=== PATIENT | female | born 1960 | race Caucasian/White ===

== ENCOUNTER 2016-03-24 08:27 | Inpatient (IN) | payer MEDICAID, OTHER ==
[2016-03-24] MEDS ORDERED: methylPREDNISolone SOD SUCCI 125 MG/2 ML VIAL IV STA (09:05)
[2016-03-24] MEDS ORDERED: SODIUM CHLORIDE 0.9% 500 ML IV STA (09:05)
[2016-03-24] MEDS ORDERED: IPRATROPIUM-ALBUTEROL 3 ML NEB INHALATION STA ×2 (09:05→10:42)
--- NOTE | 2016-03-24 09:08 | ED ---
General Adult HPI - General Chief complaint: Shortness of Breath Stated complaint: SHAORN, COUGH, RAPID HEARTRATE Time Seen by Provider: 03/24/16 08:45 Source: patient, RN notes reviewed Mode of arrival: ambulatory Limitations: no limitations - History of Present Illness Initial comments: This is a 55-year-old female with past medical history significant for smoking. Patient comes in today stating over the last 5 days she has had difficulty breathing and is getting progressively worse per patient states she's cut down her smoking quite a bit of last 5 days. Patient states she is also coughing quite a bit and no sputum. Patient states now it hurts in her chest cough. Patient states she's been coughing so much she thinks she is injured her chest wall. Patient states when she is not taking deep breaths or coughing it does not hurt. Patient denies any palpitations. Patient denies any abdominal pain. Patient denies nausea vomiting diarrhea. Patient denies any episodes of diaphoresis. Patient denies any headache patient denies numbness weakness. Patient denies any lightheadedness dizziness or near-syncopal episode. - Related Data Home Medications Medication Instructions Recorded Confirmed Tylenol Cold And Flu Liquid 30 ml PO Q4H PRN MDD 150ML 03/24/16 03/24/16 Allergies Allergy/AdvReac Type Severity Reaction Status Date / Time No Known Allergies Allergy Verified 03/24/16 08:46 Review of Systems ROS Statement: Those systems with pertinent positive or pertinent negative responses have been documented in the HPI. ROS Other: All systems not noted in ROS Statement are negative. Past Medical History Past Medical History: No Reported History History of Any Multi-Drug Resistant Organisms: None Reported Past Surgical History: Back Surgery, Tubal Ligation Additional Past Surgical History / Comment(s): BACK SURGERY X2 Past Anesthesia/Blood Transfusion Reactions: No Reported Reaction, Motion Sickness Past Psychological History: No Psychological Hx Reported Smoking Status: Heavy tobacco smoker Past Alcohol Use History: Occasional Past Drug Use History: None Reported - Past Family History Father Family Medical History: Cancer Additional Family Medical History / Comment(s): BOWEL CANCER Mother Family Medical History: Cancer Additional Family Medical History / Comment(s): PANCREATIC CANCER General Exam - General Exam Comments Initial Comments: GENERAL: Patient is well-developed and well-nourished. Patient is nontoxic and well- hydrated and is in mild distress. ENT: Neck is soft and supple. No significant lymphadenopathy is noted. Oropharynx is clear. Moist mucous membranes. Neck has full range of motion without eliciting any pain. EYES: The sclera were anicteric and conjunctiva were pink and moist. Extraocular movements were intact and pupils were equal round and reactive to light. Eyelids were unremarkable. PULMONARY: Patient has diminished breath sounds bilaterally and some crackles in left side CARDIOVASCULAR: There is a regular rate and rhythm without any murmurs gallops or rubs. ABDOMEN: Soft and nontender with normal bowel sounds. No palpable organomegaly was noted. There is no palpable pulsatile mass. SKIN: Skin is clear with no lesions or rashes and otherwise unremarkable. NEUROLOGIC: Patient is alert and oriented x3. Cranial nerves II through XII are grossly intact. Motor and sensory are also intact. Normal speech, volume and content. Symmetrical smile. MUSCULOSKELETAL: Normal extremities with adequate strength and full range of motion. No lower extremity swelling or edema. No calf tenderness. LYMPHATICS: No significant lymphadenopathy is noted PSYCHIATRIC: Normal psychiatric evaluation. Limitations: no limitations Course Vital Signs 03/24/16 03/24/16 03/24/16 08:43 09:10 09:18 Temperature 98.4 F 98.3 F Pulse Rate 113 H 106 H 88 Respiratory 18 18 18 Rate Blood Pressure 144/66 135/67 O2 Sat by Pulse 89 L 88 L 95 Oximetry 03/24/16 03/24/16 03/24/16 09:37 09:47 09:50 Temperature Pulse Rate 79 108 H 72 Respiratory 17 Rate Blood Pressure 124/69 O2 Sat by Pulse 97 Oximetry 03/24/16 03/24/16 03/24/16 10:33 11:16 11:26 Temperature 98.1 F Pulse Rate 104 H 103 H 100 Respiratory 18 Rate Blood Pressure O2 Sat by Pulse 91 L Oximetry Medical Decision Making - Medical Decision Making EKG shows a sinus rhythm with a marked sinus arrhythmia at 85 bpm PA interval is 128 QRS is 92 QT interval 360 QTC is 428. Patient's EKG shows no ST segment elevation or depression or T-wave abdomen is noted Patient received multiple breathing treatments in the emergency department as well as Solu-Medrol and after those treatments I listened to the patient she continued to wheeze and dropped down to 91% pulse ox on 2 L. Was at this point time I felt the patient needed to be admitted because she continued to have shortness of breath wheezing and her pulse ox was low and she has no oxygen or treatments at home. I spoke with Dr. Judge he agreed to admit the patient admitted the patient and wrote admitting orders - Lab Data Result diagrams: 03/24/16 09:10 03/24/16 09:10 Lab Results 03/24/16 03/24/16 03/24/16 Range/Units 09:10 09:10 09:10 WBC 12.6 H (3.8-10.6) k/uL RBC 4.86 (3.80-5.40) m/uL Hgb 15.3 (11.4-16.0) gm/dL Hct 46.6 H (34.0-46.0) % MCV 95.9 (80.0-100.0) fL MCH 31.4 (25.0-35.0) pg MCHC 32.7 (31.0-37.0) g/dL RDW 11.8 (11.5-15.5) % Plt Count 227 (150-450) k/uL Neutrophils % 85 % Lymphocytes % 9 % Monocytes % 5 % Eosinophils % 0 % Basophils % 0 % Neutrophils # 10.7 H (1.3-7.7) k/uL Lymphocytes # 1.2 (1.0-4.8) k/uL Monocytes # 0.6 (0-1.0) k/uL Eosinophils # 0.0 (0-0.7) k/uL Basophils # 0.0 (0-0.2) k/uL PT (9.0-12.0) sec INR (<1.1) APTT (22.0-30.0) sec D-Dimer (<0.60) mg/L FEU Sodium 144 (137-145) mmol/L Potassium 4.2 (3.5-5.1) mmol/L Chloride 108 H (98-107) mmol/L Carbon Dioxide 25 (22-30) mmol/L Anion Gap 11 mmol/L BUN 14 (7-17) mg/dL Creatinine 0.70 (0.52-1.04) mg/dL Est GFR (MDRD) Af Amer >60 (>60 ml/min/1.73 sqM) Est GFR (MDRD) Non-Af >60 (>60 ml/min/1.73 sqM) Glucose 89 (74-99) mg/dL Calcium 9.6 (8.4-10.2) mg/dL Magnesium 2.0 (1.6-2.3) mg/dL Total Bilirubin 0.5 (0.2-1.3) mg/dL AST 28 (14-36) U/L ALT 41 (9-52) U/L Alkaline Phosphatase 66 (38-126) U/L Total Creatine Kinase 55 (30-135) U/L CK-MB (CK-2) 1.2 (0.0-2.4) ng/mL CK-MB (CK-2) Rel Index 2.2 Troponin I <0.012 (0.000-0.034) ng/mL Total Protein 7.2 (6.3-8.2) g/dL Albumin 4.5 (3.5-5.0) g/dL 03/24/16 Range/Units 09:10 WBC (3.8-10.6) k/uL RBC (3.80-5.40) m/uL Hgb (11.4-16.0) gm/dL Hct (34.0-46.0) % MCV (80.0-100.0) fL MCH (25.0-35.0) pg MCHC (31.0-37.0) g/dL RDW (11.5-15.5) % Plt Count (150-450) k/uL Neutrophils % % Lymphocytes % % Monocytes % % Eosinophils % % Basophils % % Neutrophils # (1.3-7.7) k/uL Lymphocytes # (1.0-4.8) k/uL Monocytes # (0-1.0) k/uL Eosinophils # (0-0.7) k/uL Basophils # (0-0.2) k/uL PT 10.0 (9.0-12.0) sec INR 1.0 (<1.1) APTT 24.6 (22.0-30.0) sec D-Dimer 0.23 (<0.60) mg/L FEU Sodium (137-145) mmol/L Potassium (3.5-5.1) mmol/L Chloride (98-107) mmol/L Carbon Dioxide (22-30) mmol/L Anion Gap mmol/L BUN (7-17) mg/dL Creatinine (0.52-1.04) mg/dL Est GFR (MDRD) Af Amer (>60 ml/min/1.73 sqM) Est GFR (MDRD) Non-Af (>60 ml/min/1.73 sqM) Glucose (74-99) mg/dL Calcium (8.4-10.2) mg/dL Magnesium (1.6-2.3) mg/dL Total Bilirubin (0.2-1.3) mg/dL AST (14-36) U/L ALT (9-52) U/L Alkaline Phosphatase (38-126) U/L Total Creatine Kinase (30-135) U/L CK-MB (CK-2) (0.0-2.4) ng/mL CK-MB (CK-2) Rel Index Troponin I (0.000-0.034) ng/mL Total Protein (6.3-8.2) g/dL Albumin (3.5-5.0) g/dL Critical Care Time Critical Care Time: Yes Total Critical Care Time: 35 Disposition Clinical Impression: Acute exacerbation of chronic obstructive airways disease Disposition: ADMITTED IP TO THIS HOSP Referrals: Shu Milton MD [Primary Care Provider] - 1-2 days Time of Disposition: 11:37
[2016-03-24 09:28] LABS: Basophils % (A) 0 %; CH 32.3; CHCM 33.8; Eosinophils % (A) 0 %; HCT 46.6 % (34.0-46.0); HDW 2.13; HGB 15.3 gm/dL (11.4-16.0); Luc # (Auto) 0.09; Luc % (Auto) 1; Lymphocytes # (A) 1.2 k/uL (1.0-4.8); Lymphocytes % (A) 9 %; MCH 31.4 pg (25.0-35.0); MCHC 32.7 g/dL (31.0-37.0); MCV 95.9 fL (80.0-100.0); Monocytes # (A) 0.6 k/uL (0-1.0); Monocytes % (A) 5 %; Neutrophils # (A) 10.7 k/uL (1.3-7.7); Neutrophils % (A) 85 %; RBC 4.86 m/uL (3.80-5.40); RDW 11.8 % (11.5-15.5); WBC 12.6 k/uL (3.8-10.6); WBC (Perox) 12.22
[2016-03-24 09:42] LABS: Partial Thromboplastin Time 24.6 sec (22.0-30.0)
[2016-03-24 09:48] LABS: ALT 41 U/L (9-52); AST 28 U/L (14-36); Alkaline Phosphatase 66 U/L (38-126); Anion Gap 11 mmol/L; Blood Urea Nitrogen 14 mg/dL (7-17); Calcium 9.6 mg/dL (8.4-10.2); Carbon Dioxide 25 mmol/L (22-30); Chloride 108 mmol/L (98-107); Glucose 89 mg/dL (74-99); Non-African American GFR(MDRD) >60 (>60 ml/min/1.73 sqM); Potassium 4.2 mmol/L (3.5-5.1); Sodium 144 mmol/L (137-145); Total Bilirubin 0.5 mg/dL (0.2-1.3); Total Protein 7.2 g/dL (6.3-8.2)
--- NOTE | 2016-03-24 10:01 | XR ---
EXAMINATION TYPE: XR chest 2V DATE OF EXAM: 03/24/2016 9:58 AM COMPARISON: NONE INDICATION: Difficulty breathing cough shortness of breath TECHNIQUE: Frontal and lateral views of the chest are obtained. FINDINGS: The heart size is normal. The pulmonary vasculature is normal. The lungs are clear. IMPRESSION: 1. No acute pulmonary process.
[2016-03-24 10:09] LABS: Creatine Kinase 55 U/L (30-135)
[2016-03-24 10:23] LABS: Creatine Kinase MB 1.2 ng/mL (0.0-2.4); Troponin I <0.012 ng/mL (0.000-0.034)
[2016-03-24] MEDS ORDERED: IPRATROPIUM-ALBUTEROL 3 ML NEB INHALATION PRN (11:40)
[2016-03-24 13:56] LABS: Hemoglobin A1C 5.5 % (4.2-6.1)
[2016-03-24] MEDS: methylPREDNISolone SOD SUCCI 125 MG/2 ML VIAL IV SCH ×2 (15:11→20:15)
[2016-03-24] MEDS: IPRATROPIUM-ALBUTEROL 3 ML NEB INHALATION SCH ×2 (15:19→19:21)
[2016-03-24 16:54] LABS: Glucose,Whole Blood 175 mg/dL (75-99)
[2016-03-24] MEDS: INSULIN LISPRO (humaLOG) 300 UNIT/3 ML VIAL SQ SCH ×2 (18:09→21:47)
[2016-03-24 20:28] LABS: Glucose,Whole Blood 144 mg/dL (75-99)
[2016-03-25] MEDS: methylPREDNISolone SOD SUCCI 125 MG/2 ML VIAL IV SCH ×5 (00:15→23:33)
[2016-03-25 07:22] LABS: Glucose,Whole Blood 208 mg/dL (75-99)
[2016-03-25] MEDS: IPRATROPIUM-ALBUTEROL 3 ML NEB INHALATION SCH (08:06)
[2016-03-25] MEDS: INSULIN LISPRO (humaLOG) 300 UNIT/3 ML VIAL SQ SCH ×4 (08:21→20:48)
[2016-03-25] MEDS ORDERED: LEVALBUTEROL NEB (CONC) 1.25 MG/0.5 ML AMP INHALATION PRN (10:25)
[2016-03-25] MEDS ORDERED: IPRATROPIUM 0.5 MG/2.5 ML NEBU INHALATION PRN (10:25)
[2016-03-25 10:54] LABS: Basophils % (A) 0 %; CHCM 32.5; Eosinophils % (A) 0 %; HDW 2.13; HGB 14.8 gm/dL (11.4-16.0); Luc # (Auto) 0.03; Luc % (Auto) 0; Lymphocytes # (A) 0.7 k/uL (1.0-4.8); Lymphocytes % (A) 6 %; MCH 31.2 pg (25.0-35.0); MCHC 31.5 g/dL (31.0-37.0); MCV 99.1 fL (80.0-100.0); Mean Platelet Volume 7.2; Monocytes # (A) 0.5 k/uL (0-1.0); Monocytes % (A) 4 %; Neutrophils # (A) 11.3 k/uL (1.3-7.7); Neutrophils % (A) 90 %; RBC 4.74 m/uL (3.80-5.40); WBC 12.5 k/uL (3.8-10.6); WBC (Perox) 12.57
[2016-03-25 11:05] LABS: Glucose,Whole Blood 95 mg/dL (75-99)
[2016-03-25 11:12] LABS: ALT 30 U/L (9-52); AST 22 U/L (14-36); Alkaline Phosphatase 51 U/L (38-126); Anion Gap 15 mmol/L; Blood Urea Nitrogen 14 mg/dL (7-17); Calcium 9.8 mg/dL (8.4-10.2); Carbon Dioxide 25 mmol/L (22-30); Chloride 107 mmol/L (98-107); Glucose 124 mg/dL (74-99); Non-African American GFR(MDRD) >60 (>60 ml/min/1.73 sqM); Potassium 4.1 mmol/L (3.5-5.1); Sodium 147 mmol/L (137-145); Total Bilirubin 0.5 mg/dL (0.2-1.3)
[2016-03-25] MEDS: NICOTINE 21MG/24HR PATCH TRANSDERM SCH (11:53)
[2016-03-25] MEDS: guaiFENesin 600 MG TABLET.ER PO SCH ×2 (11:53→20:47)
[2016-03-25] MEDS ORDERED: LEVALBUTEROL NEB 1.25 MG/3 ML AMP INHALATION SCH (12:00)
[2016-03-25] MEDS: IPRATROPIUM 0.5 MG/2.5 ML NEBU INHALATION SCH ×3 (12:00→17:52)
[2016-03-25] MEDS: LEVALBUTEROL NEB (CONC) 1.25 MG/0.5 ML AMP INHALATION SCH ×3 (12:04→17:52)
--- NOTE | 2016-03-25 13:30 | P.HPIM ---
History of Present Illness H&P Date: 03/25/16 Chief Complaint: Worsening shortness of breath This is a 55-year-old female with a known past medical history of smoking. Her PCP is Dr. Milton. Patient presents to the emergency room with complaints of shortness of breath over the last 5 days. Symptoms have progressively worsened. She does admit to a dry cough with no sputum production. She did have 1 day of chills and then that resolved. She denies any fevers. She does admit to pleuritic chest pain. Otherwise no other chest pain nausea or vomiting. Denies any bowel movement changes or urinary symptoms. She denies any previous history of COPD or emphysema. Patient was started on IV steroids and bronchodilators in the emergency room. She was found to have an oxygen level 88% and did require to be placed on 3 L oxygen. She is currently satting at 91%. She does have decreased oxygen saturation with ambulating. White count is 12.6 on admission. Patient complains of being very jittery feeling and heart racing after breathing treatments. She is tachycardic heart rate of 115. She was placed on telemetry monitoring. EKG on admission showed normal sinus rhythm with sinus arrhythmia. Chest x-ray showed no acute changes. Patient currently being treated for COPD exacerbation. Review of Systems Please refer to HPI otherwise unremarkable Past Medical History Past Medical History: No Reported History Additional Past Medical History / Comment(s): Past hx of back pain, numbness/ tingling left leg and sciatica but none since epidural injections 6 months ago. History of Any Multi-Drug Resistant Organisms: None Reported Past Surgical History: Back Surgery, Tubal Ligation Additional Past Surgical History / Comment(s): Lumbar laminectomy with revision , colonoscopy with benign polypectomy, L breast benign cystectomy, oral gum surgery, back epidural injections. Past Anesthesia/Blood Transfusion Reactions: No Reported Reaction, Motion Sickness Past Psychological History: No Psychological Hx Reported Additional Psychological History / Comment(s): Pt resides with her spouse. She is independent. Smoking Status: Current every day smoker Past Alcohol Use History: Occasional Additional Past Alcohol Use History / Comment(s): Pt states she started smoking in 1975 and is a ppd smoker. Past Drug Use History: None Reported - Past Family History Father Family Medical History: Cancer Additional Family Medical History / Comment(s): Father of BOWEL CANCER at the age of 82yrs. Mother Family Medical History: Cancer Additional Family Medical History / Comment(s): Mother of PANCREATIC CANCER at the age of 60yrs. Medications and Allergies Home Medications Medication Instructions Recorded Confirmed Type Tylenol Cold And Flu Liquid 30 ml PO Q4H PRN MDD 150ML 03/24/16 03/24/16 History Allergies Allergy/AdvReac Type Severity Reaction Status Date / Time No Known Allergies Allergy Verified 03/24/16 08:46 Physical Exam Vitals: Vital Signs Temp Pulse Pulse Pulse Resp BP BP 03/25/16 09:12 03/25/16 08:35 94 03/25/16 08:24 92 03/25/16 07:00 97.6 F 77 18 150/76 03/24/16 23:00 96.7 F L 80 16 109/58 03/24/16 15:19 110 H 20 03/24/16 15:00 98.4 F 110 H 20 135/68 03/24/16 12:02 98.0 F 103 H 14 130/63 Pulse Ox 03/25/16 09:12 91 L 03/25/16 08:35 03/25/16 08:24 03/25/16 07:00 90 L 03/24/16 23:00 92 L 03/24/16 15:19 03/24/16 15:00 93 L 03/24/16 12:02 91 L Intake and Output 03/24/16 03/25/16 03/25/16 22:59 06:59 14:59 Other: Voiding Method Toilet # Voids 1 3 Head normocephalic Neck supple Lungs expiratory wheezing noted bilaterally Heart tachycardic Abdomen is soft nontender nondistended positive bowel sounds no hepatosplenomegaly Extremities no edema Neuro alert and orientated to 3 Results CBC & Chem 7: 03/25/16 10:37 03/25/16 10:37 Labs: Abnormal Lab Results - Last 24 Hours (Table) 03/24/16 03/24/16 03/25/16 Range/Units 16:53 20:17 07:19 POC Glucose (mg/dL) 175 H 144 H 208 H (75-99) mg/dL Thrombosis Risk Factor Assmnt - Choose All That Apply Any of the Below Risk Factors Present?: Yes Each Factor Represents 1 point: Abnormal pulmonary function (COPD), Age 41-60 years Other Risk Factors: No Other congenital or acquired thrombophilia - If yes, enter type in comment: No Thrombosis Risk Factor Assessment Total Risk Factor Score: 2 Thrombosis Risk Factor Assessment Level: Low Risk Assessment and Plan Plan: 1. Acute COPD exacerbation: Patient has been started on IV Solu-Medrol and bronchodilators. Due to her jitteriness and tachycardia will discontinue the elbow utero and replace it with Xopenex. Continue with telemetry monitoring. Cough with no sputum production. Add Mucinex. Consult pulmonary service 2. Acute respiratory failure with Hypoxia secondary to COPD exacerbation. 3. Sinus tachycardia possible secondary to her COPD exacerbation. Continue with cardiac monitoring. Updraft treatments have been adjusted to Xopenex and albuterol discontinued 4. Nicotine dependence: Discussed smoking cessation for greater than 5 minutes. Add nicotine patch. 5. GI prophylaxis Pepcid and DVT prophylaxis subcu heparin Time with Patient: Greater than 30 (Greater than 50% of the total time spent in counseling and coordination of care.I performed an examination of the patient and discussed their management with the physician Saddle Mechanic. I have reviewed the Physician Saddle Mechanic's notes and agree with the documented findings and plan of care)
[2016-03-25] MEDS ORDERED: RX INFO: IV CONTRAST WAS GIVEN 1 EACH MISC MISCELLANE PRN (15:54)
--- NOTE | 2016-03-25 15:54 | P.CNPUL ---
History of Present Illness Consult date: 03/25/16 Reason for consult: dyspnea History of present illness: 65-year-old female patient, a chronic smoker, with essentially negative past medical history, who started approximately 5 days ago to complain of increased cough and chest congestion. The patient treated herself with [id number] medication. She is started up by having some chills yet there is no documented temperature. Subsequently the cough and chest congestion settled then and following that she started expressing some shortness of breath and she became anxious. For that reason she presented to the hospital for further evaluation and treatment. The chest x-ray showing hyperinflation without any acute pulmonary infiltration or pneumonia. She is afebrile. She is hemodynamically stable. Slightly tachycardic. No pleurisy. No hemoptysis. No swelling lower extremities. Pain or tenderness. No history of any DVT or pulmonary embolism. No 70 cardiac disease. She is feeling better however despite her relatively benign lung exam she is hypoxic with a baseline pulse ox of 91% on room air and she desaturated down to 86% with walking in the hallway. For all this reasons, a CT of the chest will be ordered. No 70 cardiac disease. No other complaints at all. Review of Systems Review of system was done and the positive finding is almost above history of present illness Past Medical History Past Medical History: No Reported History Additional Past Medical History / Comment(s): Past hx of back pain, numbness/ tingling left leg and sciatica but none since epidural injections 6 months ago. History of Any Multi-Drug Resistant Organisms: None Reported Past Surgical History: Back Surgery, Tubal Ligation Additional Past Surgical History / Comment(s): Lumbar laminectomy with revision , colonoscopy with benign polypectomy, L breast benign cystectomy, oral gum surgery, back epidural injections. Past Anesthesia/Blood Transfusion Reactions: No Reported Reaction, Motion Sickness Past Psychological History: No Psychological Hx Reported Additional Psychological History / Comment(s): Pt resides with her spouse. She is independent. Smoking Status: Current every day smoker Past Alcohol Use History: Occasional Additional Past Alcohol Use History / Comment(s): Pt states she started smoking in 1975 and is a ppd smoker. Past Drug Use History: None Reported - Past Family History Father Family Medical History: Cancer Additional Family Medical History / Comment(s): Father of BOWEL CANCER at the age of 82yrs. Mother Family Medical History: Cancer Additional Family Medical History / Comment(s): Mother of PANCREATIC CANCER at the age of 60yrs. Medications and Allergies Home Medications Medication Instructions Recorded Confirmed Type Tylenol Cold And Flu Liquid 30 ml PO Q4H PRN MDD 150ML 03/24/16 03/24/16 History Allergies Allergy/AdvReac Type Severity Reaction Status Date / Time No Known Allergies Allergy Verified 03/24/16 08:46 Physical Exam Vitals: Vital Signs Temp Pulse Pulse Resp BP Pulse Ox 03/25/16 15:00 91 20 118/63 94 L 03/25/16 09:12 91 L 03/25/16 08:35 94 03/25/16 08:24 92 03/25/16 07:00 97.6 F 77 18 150/76 90 L 03/24/16 23:00 96.7 F L 80 16 109/58 92 L Intake and Output 03/25/16 03/25/16 03/25/16 06:59 14:59 22:59 Other: Voiding Method Toilet Toilet # Voids 3 3 Weight 58.967 kg Patient Weight 03/26/16 06:59 Weight 58.967 kg Head exam was generally normal. There was no scleral icterus or corneal arcus. Mucous membranes were moist.Neck was supple and without jugular venous distension, thyromegaly, or carotid bruits. Carotids were easily palpable bilaterally. There was no adenopathy. Lung sounds are diminished with only some few scattered expiratory wheezes. Otherwise negative.Cardiac exam revealed the PMI to be normally situated and sized. The rhythm was regular and no extrasystoles were noted during several minutes of auscultation. The first and second heart sounds were normal and physiologic splitting of the second heart sound was noted. There were no murmurs, rubs, clicks, or gallops.Abdominal exam revealed normal bowel sounds. The abdomen was soft, non- tender, and without masses, organomegaly, or appreciable enlargement of the abdominal aorta. MExamination of the extremities revealed easily palpable radial, femoral and pedal pulses. There was no cyanosis, clubbing or edema. Results - Laboratory Findings CBC and BMP: 03/25/16 10:37 03/25/16 10:37 PT/INR, D-dimer PT 10.0 sec (9.0-12.0) 03/24/16 09:10 INR 1.0 (<1.1) 03/24/16 09:10 D-Dimer 0.23 mg/L FEU (<0.60) 03/24/16 09:10 Abnormal lab findings: Abnormal Labs 03/24/16 03/24/16 03/25/16 16:53 20:17 07:19 WBC Hct Neutrophils # Lymphocytes # Sodium Glucose POC Glucose (mg/dL) 175 H 144 H 208 H 03/25/16 03/25/16 10:37 10:37 WBC 12.5 H Hct 47.0 H Neutrophils # 11.3 H Lymphocytes # 0.7 L Sodium 147 H Glucose 124 H POC Glucose (mg/dL) - Diagnostic Findings Chest x-ray: image reviewed Assessment and Plan Plan: Assessment 1 Acute hypoxic respiratory failure, in association with some cough and chest congestion without clear indication of an underlying pneumonia. On examination , I do not appreciate a significant bronchospasm and wheezing. Chest x-ray is consistent with hyperinflation. It's very much likely the patient underlying COPD secondary to smoking. Rule out underlying pneumonia not visualized. On the chest x-ray. Rule out underlying pulmonary embolism. Plan We'll proceed with a CTA of the chest to rule out pulmonary embolism. We will also look for any pulmonary infiltrates or pneumonia explaining the patient's ongoing hypoxemia. Will meanwhile treat this patient with a combination of bronchodilators and the patient is currently on a combination of Xopenex and Atrovent neb last treatment [id number] and IV Solu-Medrol. I checked her pulse ox on room air and she is still at 91% and she would desaturate with activity. We'll continue to follow her oxygenation status. We'll make further recommendations accordingly. Smoking cessation counseling was done. Nicotine patch was offered.
[2016-03-25 17:07] LABS: Glucose,Whole Blood 177 mg/dL (75-99)
--- NOTE | 2016-03-25 17:49 | CT ---
EXAMINATION TYPE: CT angio chest DATE OF EXAM: 03/25/2016 5:04 PM COMPARISON: NONE HISTORY: Shortness of breath CT DLP: 134.4 mGycm Automated exposure control for dose reduction was used. CONTRAST: CTA scan of the thorax is performed with IV Contrast, patient injected with 100 mL of Omnip aque 350, pulmonary embolism protocol. . FINDINGS: LUNGS: There is a band of opacity high in the left upper lobe. There is partial airlessness within th e medial segment of the right middle lobe. The lungs are otherwise grossly clear, there is no concern ing parenchymal mass or nodule identified. There is no pleural effusion or pneumothorax seen. The tracheobronchial tree is patent. MEDIASTINUM: There is satisfactory enhancement of the pulmonary artery and its branches, there is no CT evidence for pulmonary embolism. There are no greater than 1 cm hilar or mediastinal lymph nodes. No pericardial effusion is seen. OTHER: No additional significant abnormality is seen. IMPRESSION: 1. NO ACUTE PROCESS. NEGATIVE FOR PULMONARY EMBOLISM. 2. INCIDENTAL FINDING: BILATERAL LUNG PARENCHYMAL FINDINGS FOR WHICH SIX-MONTH FOLLOW-UP CT IS RECOM MENDED TO RECHARACTERIZE AT THAT TIME. ALTERNATIVE WOULD BE TO DIRECTLY REVIEWED A PRIOR CT WHICH MAY BE AVAILABLE FROM ANOTHER INSTITUTION.
[2016-03-25 20:13] LABS: Glucose,Whole Blood 138 mg/dL (75-99)
[2016-03-25] MEDS: HEPARIN SODIUM,PORCINE 5,000 UNIT/ML 1 ML VIAL SQ SCH (20:48)
[2016-03-25 22:44] VITALS: RESP 16
[2016-03-26] MEDS: ALPRAZolam 0.25 MG TAB PO PRN ×2 (02:34→21:22)
[2016-03-26] MEDS: methylPREDNISolone SOD SUCCI 125 MG/2 ML VIAL IV SCH (06:05)
[2016-03-26 07:21] LABS: Basophils % (A) 0 %; CHCM 32.9; Eosinophils % (A) 0 %; HCT 46.6 % (34.0-46.0); HDW 2.16; Luc # (Auto) 0.07; Luc % (Auto) 0; Lymphocytes % (A) 6 %; MCH 31.6 pg (25.0-35.0); MCHC 32.3 g/dL (31.0-37.0); MCV 97.7 fL (80.0-100.0); Mean Platelet Volume 7.3; Monocytes # (A) 0.4 k/uL (0-1.0); Monocytes % (A) 3 %; Neutrophils # (A) 14.5 k/uL (1.3-7.7); Neutrophils % (A) 91 %; RBC 4.77 m/uL (3.80-5.40); RDW 12.1 % (11.5-15.5); WBC (Perox) 15.93
[2016-03-26 07:25] LABS: ALT 37 U/L (9-52); AST 20 U/L (14-36); Alkaline Phosphatase 57 U/L (38-126); Anion Gap 9 mmol/L; Blood Urea Nitrogen 18 mg/dL (7-17); Calcium 9.9 mg/dL (8.4-10.2); Carbon Dioxide 29 mmol/L (22-30); Chloride 107 mmol/L (98-107); Glucose 137 mg/dL (74-99); Non-African American GFR(MDRD) >60 (>60 ml/min/1.73 sqM); Potassium 4.7 mmol/L (3.5-5.1); Sodium 145 mmol/L (137-145); Total Bilirubin 0.6 mg/dL (0.2-1.3)
[2016-03-26] MEDS: NICOTINE 21MG/24HR PATCH TRANSDERM SCH (08:23)
[2016-03-26] MEDS: FAMOTIDINE 20 MG TAB PO SCH (08:24)
[2016-03-26] MEDS: guaiFENesin 600 MG TABLET.ER PO SCH ×2 (08:24→21:22)
[2016-03-26] MEDS: HEPARIN SODIUM,PORCINE 5,000 UNIT/ML 1 ML VIAL SQ SCH ×2 (08:26→21:22)
[2016-03-26 08:28] LABS: Glucose,Whole Blood 153 mg/dL (75-99)
[2016-03-26] MEDS: INSULIN LISPRO (humaLOG) 300 UNIT/3 ML VIAL SQ SCH ×4 (08:31→21:22)
[2016-03-26] MEDS: IPRATROPIUM 0.5 MG/2.5 ML NEBU INHALATION SCH ×4 (08:45→20:15)
[2016-03-26] MEDS: LEVALBUTEROL NEB (CONC) 1.25 MG/0.5 ML AMP INHALATION SCH ×4 (08:45→20:15)
--- NOTE | 2016-03-26 11:49 | P.PN ---
Subjective Patient being treated for COPD exacerbation. Oxygen saturation does decrease down to 8688% on room air with ambulating. Computed tomography scan of the chest was negative for PE. Patient is now having a more productive cough. Denies any chest pain. Has noticed improvement shortness of breath. Denies any nausea or vomiting. No bowel movement 2 days. Denies any difficulty urinating. Objective - Vital Signs Vital signs: Vital Signs Temp 98.2 F 03/26/16 07:00 Pulse 95 03/26/16 07:00 Resp 16 03/26/16 07:00 BP 117/80 03/26/16 07:00 Pulse Ox 91 L 03/26/16 07:00 Intake & Output 03/25/16 03/26/16 03/26/16 18:59 06:59 18:59 Intake Total 120 Balance 120 Weight 58.967 kg 58.967 kg Intake: IV 20 saline flush 20 Oral 100 Other: Voiding Method Toilet Toilet Toilet # Voids 3 1 - Exam Head normocephalic Neck supple Lungs diminished bilaterally with no wheezing Heart regular rate and rhythm S1-S2, no rub or gallop Abdomen is soft nontender nondistended positive bowel sounds no hepatosplenomegaly Extremities no edema Neuro alert and orientated to 3 - Labs CBC & Chem 7: 03/26/16 07:03 03/26/16 07:03 Labs: Abnormal Lab Results - Last 24 Hours (Table) 03/25/16 03/25/16 03/26/16 Range/Units 17:03 20:12 07:03 WBC 16.0 H (3.8-10.6) k/uL Hct 46.6 H (34.0-46.0) % Neutrophils # 14.5 H (1.3-7.7) k/uL BUN (7-17) mg/dL Glucose (74-99) mg/dL POC Glucose (mg/dL) 177 H 138 H (75-99) mg/dL 03/26/16 03/26/16 Range/Units 07:03 08:18 WBC (3.8-10.6) k/uL Hct (34.0-46.0) % Neutrophils # (1.3-7.7) k/uL BUN 18 H (7-17) mg/dL Glucose 137 H (74-99) mg/dL POC Glucose (mg/dL) 153 H (75-99) mg/dL Assessment and Plan Plan: 1. Acute COPD exacerbation: June down the IV Solu-Medrol to 40 mg every 8 hours. Patient has been having some flushing. Appreciate pulmonary service consult. Continue with bronchodilators in the form of Xopenex with Atrovent. Check sputum culture. 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 2. Acute respiratory failure with Hypoxia secondary to COPD exacerbation. 3. Sinus tachycardia possible secondary to her COPD exacerbation. Continue with cardiac monitoring. Updraft treatments have been adjusted to Xopenex and albuterol discontinued 4. Nicotine dependence: Discussed smoking cessation for greater than 5 minutes. Continue nicotine patch. 5. GI prophylaxis Pepcid and DVT prophylaxis subcu heparin
[2016-03-26 12:03] LABS: Glucose,Whole Blood 111 mg/dL (75-99)
[2016-03-26] MEDS: methylPREDNISolone SOD SUCCI 40 MG/ML 1 ML VIAL IV SCH (16:32)
--- NOTE | 2016-03-26 16:46 | P.PN ---
Subjective 65-year-old female patient, a chronic smoker, with essentially negative past medical history, who started approximately 5 days ago to complain of increased cough and chest congestion. The patient treated herself with [id number] medication. She is started up by having some chills yet there is no documented temperature. Subsequently the cough and chest congestion settled then and following that she started expressing some shortness of breath and she became anxious. For that reason she presented to the hospital for further evaluation and treatment. The chest x-ray showing hyperinflation without any acute pulmonary infiltration or pneumonia. She is afebrile. She is hemodynamically stable. Slightly tachycardic. No pleurisy. No hemoptysis. No swelling lower extremities. Pain or tenderness. No history of any DVT or pulmonary embolism. No 70 cardiac disease. She is feeling better however despite her relatively benign lung exam she is hypoxic with a baseline pulse ox of 91% on room air and she desaturated down to 86% with walking in the hallway. For all this reasons, a CT of the chest will be ordered. No 70 cardiac disease. No other complaints at all. On 03/26/2016 the patient is being seen in follow-up. She is improving that she is less short of breath compared to yesterday. CAT scan of the chest was done yesterday and there was no acute process and was negative for pulmonary embolism. There was incidental finding of bilateral lung parenchymal changes including biapical scarring and a another bandlike scar in the left upper lobe which most likely is a post inflammatory process other than malignancy. The patient was reassured in that regard. Clinically she is improving. Her pulse ox on room air is up to 91-92%. No hemoptysis. No pleurisy. No swelling lower extremities. No other complaints otherwise. Objective - Vital Signs Vital signs: Vital Signs Temp 98.2 F 03/26/16 07:00 Pulse 76 03/26/16 16:05 Resp 16 03/26/16 07:00 BP 117/80 03/26/16 07:00 Pulse Ox 91 L 03/26/16 11:58 Intake & Output 03/25/16 03/26/16 03/26/16 18:59 06:59 18:59 Intake Total 120 Balance 120 Weight 58.967 kg 58.967 kg Intake: IV 20 saline flush 20 Oral 100 Other: Voiding Method Toilet Toilet Toilet # Voids 3 1 - Exam Head exam was generally normal. There was no scleral icterus or corneal arcus. Mucous membranes were moist.Neck was supple and without jugular venous distension, thyromegaly, or carotid bruits. Carotids were easily palpable bilaterally. There was no adenopathy. Lung sounds are diminished with only some few scattered expiratory wheezes. Otherwise negative.Cardiac exam revealed the PMI to be normally situated and sized. The rhythm was regular and no extrasystoles were noted during several minutes of auscultation. The first and second heart sounds were normal and physiologic splitting of the second heart sound was noted. There were no murmurs, rubs, clicks, or gallops.Abdominal exam revealed normal bowel sounds. The abdomen was soft, non- tender, and without masses, organomegaly, or appreciable enlargement of the abdominal aorta. MExamination of the extremities revealed easily palpable radial, femoral and pedal pulses. There was no cyanosis, clubbing or edema. - Labs CBC & Chem 7: 03/26/16 07:03 03/26/16 07:03 Labs: Abnormal Lab Results - Last 24 Hours (Table) 03/25/16 03/25/16 03/26/16 Range/Units 17:03 20:12 07:03 WBC 16.0 H (3.8-10.6) k/uL Hct 46.6 H (34.0-46.0) % Neutrophils # 14.5 H (1.3-7.7) k/uL BUN (7-17) mg/dL Glucose (74-99) mg/dL POC Glucose (mg/dL) 177 H 138 H (75-99) mg/dL 03/26/16 03/26/16 03/26/16 Range/Units 07:03 08:18 11:59 WBC (3.8-10.6) k/uL Hct (34.0-46.0) % Neutrophils # (1.3-7.7) k/uL BUN 18 H (7-17) mg/dL Glucose 137 H (74-99) mg/dL POC Glucose (mg/dL) 153 H 111 H (75-99) mg/dL Assessment and Plan Plan: Assessment 1 Acute hypoxic respiratory failure, in association with some cough and chest congestion without clear indication of an underlying pneumonia. On examination , I do not appreciate a significant bronchospasm and wheezing. Chest x-ray is consistent with hyperinflation. It's very much likely the patient underlying COPD secondary to smoking. Rule out underlying pneumonia not visualized. On the chest x-ray. Rule out underlying pulmonary embolism. On 03/26/2016 the patient is being seen in follow-up. The patient had a CT of the chest that causes negative for pulmonary embolism. Biapical scarring was visualized. Plan The patient was reassured and the results of the CAT scan of the chest. We'll continue treating this patient with a combination of Xopenex and Atrovent neb last treatment [id number] and IV Solu-Medrol. Smoking cessation counseling was done. Nicotine patch was offered. She is improving and potentially she'll get discharged home in a.m.
[2016-03-26 17:36] LABS: Glucose,Whole Blood 120 mg/dL (75-99)
[2016-03-26 21:27] LABS: Glucose,Whole Blood 181 mg/dL (75-99)
[2016-03-27] MEDS: methylPREDNISolone SOD SUCCI 40 MG/ML 1 ML VIAL IV SCH ×2 (00:07→08:01)
[2016-03-27 07:32] LABS: Glucose,Whole Blood 123 mg/dL (75-99)
[2016-03-27 07:45] LABS: Basophils % (A) 0 %; CH 31.9; CHCM 32.8; Eosinophils % (A) 0 %; HCT 46.5 % (34.0-46.0); HDW 2.12; HGB 14.9 gm/dL (11.4-16.0); Luc # (Auto) 0.05; Luc % (Auto) 0; Lymphocytes # (A) 1.1 k/uL (1.0-4.8); Lymphocytes % (A) 8 %; MCH 31.4 pg (25.0-35.0); MCHC 32.1 g/dL (31.0-37.0); MCV 97.8 fL (80.0-100.0); Mean Platelet Volume 7.5; Monocytes # (A) 0.5 k/uL (0-1.0); Monocytes % (A) 4 %; Neutrophils # (A) 11.9 k/uL (1.3-7.7); Neutrophils % (A) 87 %; RBC 4.75 m/uL (3.80-5.40); RDW 12.3 % (11.5-15.5); WBC 13.6 k/uL (3.8-10.6); WBC (Perox) 13.22
[2016-03-27] MEDS: INSULIN LISPRO (humaLOG) 300 UNIT/3 ML VIAL SQ SCH ×2 (07:58→11:58)
[2016-03-27] MEDS: guaiFENesin 600 MG TABLET.ER PO SCH (08:01)
[2016-03-27] MEDS: NICOTINE 21MG/24HR PATCH TRANSDERM SCH (08:01)
[2016-03-27] MEDS: FAMOTIDINE 20 MG TAB PO SCH (08:01)
[2016-03-27] MEDS: HEPARIN SODIUM,PORCINE 5,000 UNIT/ML 1 ML VIAL SQ SCH (08:02)
[2016-03-27 08:17] LABS: ALT 35 U/L (9-52); AST 20 U/L (14-36); Alkaline Phosphatase 61 U/L (38-126); Anion Gap 11 mmol/L; Blood Urea Nitrogen 16 mg/dL (7-17); Carbon Dioxide 27 mmol/L (22-30); Chloride 106 mmol/L (98-107); Glucose 118 mg/dL (74-99); Non-African American GFR(MDRD) >60 (>60 ml/min/1.73 sqM); Potassium 4.5 mmol/L (3.5-5.1); Sodium 144 mmol/L (137-145); Total Bilirubin 0.6 mg/dL (0.2-1.3); Total Protein 7.1 g/dL (6.3-8.2)
[2016-03-27] MEDS: IPRATROPIUM 0.5 MG/2.5 ML NEBU INHALATION SCH ×2 (08:40→12:25)
[2016-03-27] MEDS: LEVALBUTEROL NEB (CONC) 1.25 MG/0.5 ML AMP INHALATION SCH ×2 (08:48→12:52)
[2016-03-27 09:24] VITALS: BP 122/70; TEMP 97.8
[2016-03-27 10:14] VITALS: PULSE 100
--- NOTE | 2016-03-27 12:10 | P.DS ---
Providers Date of admission: 03/24/16 11:40 Expected date of discharge: 03/27/16 Attending physician: Parth Levy Consults: 03/25/16 13:28 Consult Physician Routine Consulting Provider: Tamara Ahmadi Consult Reason/Comments: COPD exacerbation Do you want consulting provider notified?: Yes Primary care physician: [facility] Course: 55-year-old female presented 5 days prior with a chief complaint of developing increased cough increased chest congestion with fever chills. Patient has a significant history of chronic tobacco abuse. Otherwise a negative past medical history. Patient stated that she did try [id number] products was no relief. Subsequently the patient did present to be evaluated for the above- mentioned symptoms. A pulmonology consultation was requested. CAT scan of the chest was done there was no evidence of pulmonary emboli. Clinically the patient continued to improve. Patient started on IV Solu-Medrol. And on room air there was sats documented [id number]%. On the day of discharge pulmonology indicated the patient was appropriate to proceed with a discharge to home. Patient's baseline on admission pulse ox sat on room air with activity did drop down to 86% with walking in the hallway. It was for this reason that the CAT scan of the chest was ordered showing no evidence of pulmonary emboli. Patient had been counseled at length about stop smoking cigarettes. No hemoptysis noted. Impression discharge diagnosis Present on admission acute hypoxic respiratory failure with chest congestion suspect due to acute exacerbation COPD with no clear indication of underlying pneumonia Chronic nicotine dependency Sinus tachycardic suspect due to COPD exacerbation The above dictated assessment and findings were discussed with dr tipton. Impression and the plan of care have been dictated as directed. Paige Bledsoe nurse practitioner acting as a scribe for dr tipton Plan - Discharge Summary New Discharge Prescriptions: Doxycycline Hyclate [Vibramycin] 100 mg PO BID #14 cap predniSONE 20 mg PO DAILY #24 tab Discharge Medication List Tylenol Cold And Flu Liquid 30 ml PO Q4H PRN MDD 150ML 03/24/16 [History] Doxycycline Hyclate [Vibramycin] 100 mg PO BID #14 cap 03/27/16 [Rx] Nicotine 21Mg/24Hr Patch [Habitrol] 1 patch TRANSDERM DAILY patch 03/27/16 [Rx] predniSONE 20 mg PO DAILY #24 tab 03/27/16 [Rx] Follow up Appointment(s)/Referral(s): Shu Milton MD [Primary Care Provider] - 1-2 days Activity/Diet/Wound Care/Special Instructions: Provide patient with smoking cessation information patient's been advised to stop smoking cigarettes Discharge Disposition: HOME SELF-CARE
--- NOTE | 2016-03-27 13:15 | P.PN ---
Subjective This is a very pleasant 55-year-old female patient who presented here 2016 with complaints of increasing shortness of breath, cough and congestion. Her chest x-ray showed evidence of hyperinflation but no acute pulmonary infiltrate or pneumonia. She was quite hypoxemic and the computed tomography scan was ordered by Dr. Ahmadi. There is again no acute process. There is no pulmonary embolism. There is some biapical scarring and bandlike scar in the left upper lobe mostly representing postinflammatory process versus malignancy. The patient does have a history of chronic and ongoing nicotine addiction. He is seen again today 03/27/2016 in follow-up. She is awake and alert in no acute distress. She's been ambulating down the hallway and maintaining O2 saturations greater than 90%. She is anxious to go home. She denies any worsening shortness of breath, cough or congestion. Objective - Vital Signs Vital signs: Vital Signs Temp 97.8 F 03/27/16 07:00 Pulse 100 03/27/16 08:51 Resp 16 03/27/16 07:00 BP 122/70 03/27/16 07:00 Pulse Ox 91 L 03/27/16 07:00 Intake & Output 03/26/16 03/27/16 03/27/16 18:59 06:59 18:59 Intake Total 10 240 Balance 10 240 Weight 58.967 kg 58.967 kg 58.967 kg Intake: IV 10 saline flush 10 Oral 240 Other: Voiding Method Toilet Toilet Toilet # Voids 3 2 - Exam GENERAL EXAM: Alert, active, comfortable in no apparent distress. HEAD: Normocephalic. EYES: Normal reaction of pupils, equal size. NOSE: Clear with pink turbinates. THROAT: No erythema or exudates. NECK: No masses, no JVD. CHEST: No chest wall deformity. LUNGS: Equal air entry with no crackles, wheeze, rhonchi or dullness. Diminished. CVS: S1 and S2 normal with no audible mumurs, regular rhythm. ABDOMEN: No hepatosplenomegaly, normal bowel sounds, no guarding or rigidity. SPINE: No scoliosis or deformity SKIN: No rashes CENTRAL NERVOUS SYSTEM: No focal deficits, tone is normal in all 4 extremities. Extremities: There is no significant peripheral edema. No clubbing, no cyanosis. Peripheral pulses are intact. - Labs CBC & Chem 7: 03/27/16 07:19 03/27/16 07:19 Labs: Abnormal Lab Results - Last 24 Hours (Table) 03/26/16 03/26/16 03/27/16 Range/Units 17:29 21:11 07:11 WBC (3.8-10.6) k/uL Hct (34.0-46.0) % Neutrophils # (1.3-7.7) k/uL Glucose (74-99) mg/dL POC Glucose (mg/dL) 120 H 181 H 123 H (75-99) mg/dL 03/27/16 03/27/16 Range/Units 07:19 07:19 WBC 13.6 H (3.8-10.6) k/uL Hct 46.5 H (34.0-46.0) % Neutrophils # 11.9 H (1.3-7.7) k/uL Glucose 118 H (74-99) mg/dL POC Glucose (mg/dL) (75-99) mg/dL Assessment and Plan Plan: Impression: #1 Acute hypoxic respiratory failure secondary to suspected chronic obstructive pulmonary disease secondary to chronic nicotine addiction. Pulmonary embolism ruled out. Pneumonia ruled out. #2 Chronic and ongoing nicotine addiction. Plan: The patient was seen and evaluated by Dr. Ahmadi. Chest x-ray and CAT scans were explained to the patient. She will follow-up in our office in 1-2 weeks' time. She would benefit from full pulmonary function testing to evaluate the severity of her suspected COPD and make recommendations for her maintenance medications. She is again educated regarding the importance of complete smoking cessation. NicoDerm patch is in place. She is cleared for discharge home today. She is encouraged to call sooner with any recurrence of symptoms or other questions or concerns.
== END 2016-03-27 13:10 | disposition home or self-care (01) | DRG 190 ==
LOC: EC 08:27 → 4MS4W 11:40 → 5ONC 12:12
PROVIDERS: ADMIT Internal Medicine; ATTEND Internal Medicine
DX: J44.1 Chronic obstructive pulmonary disease with (acute) exacerbation (principal); J96.01 Acute respiratory failure with hypoxia; F17.210 Nicotine dependence, cigarettes, uncomplicated; R00.0 Tachycardia, unspecified
CPT/HCPCS: 36415; 71020; 71275; 80053; 82550; 82553; 83036; 83735; 84484; 85025; 85379; 85610; 85730; 87040; 93005; 94640; 94760; 96361; 96374; 99291

== ENCOUNTER 2017-04-30 11:11 | Observation (INO) | payer MEDICAID, OTHER ==
[2017-04-30] MEDS ORDERED: SODIUM CHLORIDE 0.9% 1,000 ML IV STA (11:18)
[2017-04-30] MEDS ORDERED: SODIUM CHLORIDE 0.9% 500 ML IV STA (11:18)
[2017-04-30 11:21] LABS: Glucose,Whole Blood 95 mg/dL (75-99)
[2017-04-30 11:41] LABS: Basophils % (A) 0 %; Eosinophils # (A) 0.1 k/uL (0-0.7); Eosinophils % (A) 1 %; HGB 12.2 gm/dL (11.4-16.0); Lymphocytes # (A) 1.7 k/uL (1.0-4.8); Lymphocytes % (A) 30 %; MCH 29.9 pg (25.0-35.0); MCHC 31.2 g/dL (31.0-37.0); MCV 95.9 fL (80.0-100.0); Mean Platelet Volume 6.5; Monocytes # (A) 0.3 k/uL (0-1.0); Monocytes % (A) 6 %; Neutrophils # (A) 3.3 k/uL (1.3-7.7); Neutrophils % (A) 60 %; Platelet Count 255 k/uL (150-450); RBC 4.06 m/uL (3.80-5.40); RDW 11.8 % (11.5-15.5); WBC 5.5 k/uL (3.8-10.6)
--- NOTE | 2017-04-30 11:45 | CT ---
EXAMINATION TYPE: CT brain wo con for TPA DATE OF EXAM: 04/30/2017 COMPARISON: NONE HISTORY: Right sided arm and facial numbness CT DLP: 999.8 mGycm Automated exposure control for dose reduction was used. FINDINGS: Central structures are midline. There is no evidence of hydrocephalus. No acute focal lesion, mass ef fect or midline shift is seen. I do not see evidence of intracranial blood. Visualized portions of the paranasal sinuses and mastoids are clear. IMPRESSION: NORMAL CT SCAN OF THE BRAIN.
--- NOTE | 2017-04-30 11:53 | ED ---
General Adult HPI - General Chief complaint: Neuro Symptoms/Deficit Stated complaint: TIA Symptoms Time Seen by Provider: 04/30/17 11:18 Source: patient, RN notes reviewed, old records reviewed Mode of arrival: ambulatory Limitations: no limitations - History of Present Illness Initial comments: This is a 56-year-old female to the ER for evaluation. Possible neurological complaint. Patient does have history of smoking. Patient is complaining of significant right-sided weakness. Patient had numbness and weakness of her right arm. No prior episodes of similar history or symptoms. Symptoms occur neurologic TV numbness down right arm and they resolved prior to arrival to emergency room. Patient denies any complaints at this time. - Related Data Home Medications Medication Instructions Recorded Confirmed Multivitamins, Thera [Multivitamin 1 tab PO DAILY 04/30/17 04/30/17 (formulary)] Allergies Allergy/AdvReac Type Severity Reaction Status Date / Time No Known Allergies Allergy Verified 04/30/17 12:26 Review of Systems ROS Statement: Those systems with pertinent positive or pertinent negative responses have been documented in the HPI. ROS Other: All systems not noted in ROS Statement are negative. Past Medical History Past Medical History: COPD Additional Past Medical History / Comment(s): Past hx of back pain, numbness/ tingling left leg and sciatica but none since epidural injections 6 months ago. History of Any Multi-Drug Resistant Organisms: None Reported Past Surgical History: Back Surgery, Tubal Ligation Additional Past Surgical History / Comment(s): Lumbar laminectomy with revision , colonoscopy with benign polypectomy, L breast benign cystectomy, oral gum surgery, back epidural injections. Past Anesthesia/Blood Transfusion Reactions: No Reported Reaction, Motion Sickness Past Psychological History: No Psychological Hx Reported Smoking Status: Current every day smoker Past Alcohol Use History: Occasional Past Drug Use History: None Reported - Past Family History Father Family Medical History: Cancer Additional Family Medical History / Comment(s): Father of BOWEL CANCER at the age of 82yrs. Mother Family Medical History: Cancer Additional Family Medical History / Comment(s): Mother of PANCREATIC CANCER at the age of 60yrs. General Exam - General Exam Comments Initial Comments: NIH of 0 Limitations: no limitations General appearance: alert, in no apparent distress Head exam: Present: atraumatic, normocephalic, normal inspection Eye exam: Present: normal appearance, PERRL, EOMI. Absent: scleral icterus, conjunctival injection, periorbital swelling ENT exam: Present: normal exam, mucous membranes moist Neck exam: Present: normal inspection. Absent: tenderness, meningismus, lymphadenopathy Respiratory exam: Present: normal lung sounds bilaterally. Absent: respiratory distress, wheezes, rales, rhonchi, stridor Cardiovascular Exam: Present: regular rate, normal rhythm, normal heart sounds. Absent: systolic murmur, diastolic murmur, rubs, gallop, clicks GI/Abdominal exam: Present: soft, normal bowel sounds. Absent: distended, tenderness, guarding, rebound, rigid Extremities exam: Present: normal inspection, full ROM, normal capillary refill. Absent: tenderness, pedal edema, joint swelling, calf tenderness Back exam: Present: normal inspection Neurological exam: Present: alert, oriented X3, CN II-XII intact Psychiatric exam: Present: normal affect, normal mood Skin exam: Present: warm, dry, intact, normal color. Absent: rash Course Vital Signs 04/30/17 04/30/17 04/30/17 11:13 11:35 11:50 Temperature 98.4 F Pulse Rate 101 H 94 88 Respiratory 20 18 18 Rate Blood Pressure 173/70 158/68 149/70 O2 Sat by Pulse 99 99 99 Oximetry 04/30/17 04/30/17 12:05 12:24 Temperature Pulse Rate 96 75 Respiratory 18 18 Rate Blood Pressure 145/68 132/69 O2 Sat by Pulse 99 97 Oximetry EKG Findings - EKG Comments: EKG Findings:: EKG shows sinus rhythm rate of 70, WI 104, QRS 90, QTc 408 Medical Decision Making - Medical Decision Making 56 female the ER for evaluation of neurological complaint right-sided weakness resolved prior to arrival. Patient be admitted for TIA and evaluation - Lab Data Result diagrams: 04/30/17 11:25 04/30/17 11:25 Lab Results 04/30/17 04/30/17 04/30/17 Range/Units 11:19 11:25 11:25 WBC 5.5 (3.8-10.6) k/uL RBC 4.06 (3.80-5.40) m/uL Hgb 12.2 (11.4-16.0) gm/dL Hct 39.0 (34.0-46.0) % MCV 95.9 (80.0-100.0) fL MCH 29.9 (25.0-35.0) pg MCHC 31.2 (31.0-37.0) g/dL RDW 11.8 (11.5-15.5) % Plt Count 255 (150-450) k/uL Neutrophils % 60 % Lymphocytes % 30 % Monocytes % 6 % Eosinophils % 1 % Basophils % 0 % Neutrophils # 3.3 (1.3-7.7) k/uL Lymphocytes # 1.7 (1.0-4.8) k/uL Monocytes # 0.3 (0-1.0) k/uL Eosinophils # 0.1 (0-0.7) k/uL Basophils # 0.0 (0-0.2) k/uL PT (9.0-12.0) sec INR (<1.2) APTT (22.0-30.0) sec Sodium (137-145) mmol/L Potassium (3.5-5.1) mmol/L Chloride (98-107) mmol/L Carbon Dioxide (22-30) mmol/L Anion Gap mmol/L BUN (7-17) mg/dL Creatinine (0.52-1.04) mg/dL Est GFR (MDRD) Af Amer (>60 ml/min/1.73 sqM) Est GFR (MDRD) Non-Af (>60 ml/min/1.73 sqM) Glucose (74-99) mg/dL POC Glucose (mg/dL) 95 (75-99) mg/dL POC Glu Tankerman ID Kyler Gardy Calcium (8.4-10.2) mg/dL Total Bilirubin (0.2-1.3) mg/dL AST (14-36) U/L ALT (9-52) U/L Alkaline Phosphatase (38-126) U/L Total Creatine Kinase 64 (30-135) U/L CK-MB (CK-2) 0.6 (0.0-2.4) ng/mL CK-MB (CK-2) Rel Index 0.9 Troponin I <0.012 (0.000-0.034) ng/mL Total Protein (6.3-8.2) g/dL Albumin (3.5-5.0) g/dL 02/17/18 02/17/18 02/17/18 Range/Units 11:25 11:25 12:18 WBC (3.8-10.6) k/uL RBC (3.80-5.40) m/uL Hgb (11.4-16.0) gm/dL Hct (34.0-46.0) % MCV (80.0-100.0) fL MCH (25.0-35.0) pg MCHC (31.0-37.0) g/dL RDW (11.5-15.5) % Plt Count (150-450) k/uL Neutrophils % % Lymphocytes % % Monocytes % % Eosinophils % % Basophils % % Neutrophils # (1.3-7.7) k/uL Lymphocytes # (1.0-4.8) k/uL Monocytes # (0-1.0) k/uL Eosinophils # (0-0.7) k/uL Basophils # (0-0.2) k/uL PT 10.0 (9.0-12.0) sec INR 1.0 (<1.2) APTT 23.0 (22.0-30.0) sec Sodium 142 (137-145) mmol/L Potassium 4.3 (3.5-5.1) mmol/L Chloride 107 (98-107) mmol/L Carbon Dioxide 26 (22-30) mmol/L Anion Gap 9 mmol/L BUN 15 (7-17) mg/dL Creatinine 0.90 (0.52-1.04) mg/dL Est GFR (MDRD) Af Amer >60 (>60 ml/min/1.73 sqM) Est GFR (MDRD) Non-Af >60 (>60 ml/min/1.73 sqM) Glucose 103 H (74-99) mg/dL POC Glucose (mg/dL) 111 H (75-99) mg/dL POC Glu Tankerman ID Pradeep Slaughter Calcium 9.3 (8.4-10.2) mg/dL Total Bilirubin 0.5 (0.2-1.3) mg/dL AST 21 (14-36) U/L ALT 23 (9-52) U/L Alkaline Phosphatase 47 (38-126) U/L Total Creatine Kinase (30-135) U/L CK-MB (CK-2) (0.0-2.4) ng/mL CK-MB (CK-2) Rel Index Troponin I (0.000-0.034) ng/mL Total Protein 6.5 (6.3-8.2) g/dL Albumin 4.0 (3.5-5.0) g/dL - Radiology Data Radiology results: report reviewed (CT brain negative for acute disease), image reviewed Disposition Clinical Impression: Transient cerebral ischemia Disposition: ADMITTED IP TO THIS HOSP Condition: Fair Referrals: Shu Milton MD [Primary Care Provider] - 1-2 days
[2017-04-30 12:07] LABS: Creatine Kinase 64 U/L (30-135)
[2017-04-30 12:09] LABS: ALT 23 U/L (9-52); AST 21 U/L (14-36); Alkaline Phosphatase 47 U/L (38-126); Anion Gap 9 mmol/L; Blood Urea Nitrogen 15 mg/dL (7-17); Calcium 9.3 mg/dL (8.4-10.2); Carbon Dioxide 26 mmol/L (22-30); Chloride 107 mmol/L (98-107); Glucose 103 mg/dL (74-99); Potassium 4.3 mmol/L (3.5-5.1); Sodium 142 mmol/L (137-145); Total Bilirubin 0.5 mg/dL (0.2-1.3); Total Protein 6.5 g/dL (6.3-8.2)
[2017-04-30 12:20] LABS: Creatine Kinase MB 0.6 ng/mL (0.0-2.4); Troponin I <0.012 ng/mL (0.000-0.034)
[2017-04-30] MEDS ORDERED: ASPIRIN 325 MG TAB PO STA (12:24)
[2017-04-30 12:34] LABS: Glucose,Whole Blood 111 mg/dL (75-99)
--- NOTE | 2017-04-30 12:39 | XR ---
EXAMINATION TYPE: XR chest 2V DATE OF EXAM: 04/30/2017 HISTORY: altered mental status. REFERENCE: Previous study dated 03/24/2016. FINDINGS: The lungs are overinflated but clear. Pleural spaces are clear. The heart is not enlarged.. IMPRESSION: COPD.
--- NOTE | 2017-04-30 13:03 | US ---
EXAMINATION TYPE: US carotid duplex BILAT DATE OF EXAM: 04/30/2017 COMPARISON: NONE CLINICAL HISTORY: Stenosis. EXAM MEASUREMENTS: RIGHT: Peak Systolic Velocity (PSV) cm/sec ----- Right CCA: 76.9 ----- Right ICA: 94.4 ----- Right ECA: 85.7 ICA/CCA ratio: 1.2 RIGHT: End Diastole cm/sec ----- Right CCA: 18.8 ----- Right ICA: 37.7 ----- Right ECA: 10.0 LEFT: Peak Systolic Velocity (PSV) cm/sec ----- Left CCA: 115.9 ----- Left ICA: 80.6 ----- Left ECA: 98.4 ICA/CCA ratio: 0.7 LEFT: End Diastole cm/sec ----- Left CCA: 23.0 ----- Left ICA: 28.9 ----- Left ECA: 12.8 VERTEBRALS (direction of flow): Right Vertebral: Antegrade Left Vertebral: Antegrade Rhythm: Normal Mild amount of plaque visualized bilaterally. Elevated velocities visualized in the left proximal CCA . IMPRESSION: I DO NOT SEE EVIDENCE OF A HEMODYNAMICALLY SIGNIFICANT STENOSIS IN EITHER CAROTID SYSTEM. Criteria for Assigning % of Stenosis / Diameter reduction (Estimation based on the indirect measurements of the internal carotid artery velocities (ICA PSV). 1. Normal (no stenosis)=ICA PSV < 125 cm/s: ratio < 2.0: ICA EDV<40 cm/s. 2. Less than 50% stenosis=ICA PSV < 125 cm/s: ratio < 2.0: ICA EDV<40 cm/s. 3. 50 to 69% stenosis=ICA PSV of 125 to 230 cm/s: ration 2.0 ? 4.0: ICA EDV 40-100 cm/s. 4. Greater than 70% stenosis to near occlusion= ICA PSV > 230 cm/s: ratio > 4.0: ICA EDV > 100 cm/s. 5. Near occlusion= ICA PSV velocities may be low or undetectable: variable ratio and ICA EDV. 6. Total occlusion=unable to detect flow.
[2017-04-30 20:25] VITALS: BMI 22.3
[2017-04-30] MEDS ORDERED: ATORVASTATIN 80 MG TAB PO SCH (21:00)
[2017-05-01 06:54] LABS: Cholesterol 228 mg/dL (<200); HDL Cholesterol 70 mg/dL (40-60); LDL Cholesterol,Calculated 150 mg/dL (0-99); Triglycerides 41 mg/dL (<150)
--- NOTE | 2017-05-01 09:29 | ECHOF ---
Referral Reason:Thrombus MEASUREMENTS -------- HEIGHT: 170.2 cm WEIGHT: 63.5 kg BP: 132/69 RVIDd: 2.7 cm (< 3.3) IVSd: 1.0 cm (0.6 - 1.1) LVIDd: 3.9 cm (3.9 - 5.3) LVPWd: 1.0 cm (0.6 - 1.1) IVSs: 1.4 cm LVIDs: 2.7 cm LVPWs: 1.2 cm LA Diam: 3.1 cm (2.7 - 3.8) LAESV Index (A-L): 14.86 ml/m Ao Diam: 2.8 cm (2.0 - 3.7) AV Cusp: 1.9 cm (1.5 - 2.6) MV EXCURSION: 18.330 mm (> 18.000) MV EF SLOPE: 59 mm/s (70 - 150) EPSS: 0.3 cm MV E Eyad: 1.04 m/s MV DecT: 160 ms MV A Eyad: 0.58 m/s MV E/A Ratio: 1.79 RAP: 5.00 mmHg RVSP: 31.03 mmHg FINDINGS -------- Sinus rhythm. This was a technically good study. The left ventricular size is normal. Left ventricular wall thickness is normal. Overall left vent ricular systolic function is normal with, an EF between 60 - 65 %. The right ventricle is normal in size. Normal LA size by volume 22+/-6 ml/m2. The right atrium is normal in size. The aortic valve is trileaflet and appears structurally normal. The mitral valve leaflets are mildly thickened. There is trace to mild mitral regurgitation. Mild tricuspid regurgitation present. Right ventricular systolic pressure is normal at < 35 mmHg. There is no pulmonic regurgitation present. The aortic root size is normal. Normal inferior vena cava with normal inspiratory collapse consistent with estimated right atrial pre ssure of 5 mmHg. There is no pericardial effusion. CONCLUSIONS -------- 1. Sinus rhythm. 2. This was a technically good study. 3. The left ventricular size is normal. 4. Left ventricular wall thickness is normal. 5. Overall left ventricular systolic function is normal with, an EF between 60 - 65 %. 6. The right ventricle is normal in size. 7. Normal LA size by volume 22+/-6 ml/m2. 8. The right atrium is normal in size. 9. The aortic valve is trileaflet and appears structurally normal. 10. The mitral valve leaflets are mildly thickened. 11. There is trace to mild mitral regurgitation. 12. Mild tricuspid regurgitation present. 13. Right ventricular systolic pressure is normal at < 35 mmHg. 14. There is no pulmonic regurgitation present. 15. The aortic root size is normal. 16. Normal inferior vena cava with normal inspiratory collapse consistent with estimated right atrial pressure of 5 mmHg. 17. There is no pericardial effusion. KITCHEN OPERATOR: Ariadne Caban RDCS
[2017-05-01 11:09] VITALS: BP 101/61; PULSE 74; RESP 16; TEMP 98.8
[2017-05-01] MEDS ORDERED: IPRATROPIUM-ALBUTEROL 3 ML NEB INHALATION PRN (11:45)
[2017-05-01] MEDS ORDERED: ASPIRIN 325 MG TAB PO SCH (12:24)
--- NOTE | 2017-05-01 13:02 | P.HPIM ---
History of Present Illness H&P Date: 05/01/17 This is a 56-year-old female with no significant past medical history who presented to the emergency room with a chief complaint of right-sided arm weakness and numbness. Patient said that her symptoms started yesterday and resolved prior to her arrival to the emergency room. Patient denies any neck pain. She never had similar symptoms in the past. She denies any headache or vision change. Patient was evaluated in the emergency room and computed tomography scan of the brain was essentially normal. Patient was admitted to telemetry floor and was treated as a possible TIA. She was started on aspirin. She was seen and evaluated by neurology. She underwent a carotid Doppler showing no hemodynamically significant stenosis. Echocardiogram of the heart was essentially normal. Cholesterol level was noted to be elevated and patient will be started on Lipitor 20 mg daily. She will also be started on aspirin 81 mg daily. She was cleared by neurology for discharge. She will follow-up with her primary care physician as directed. Review of Systems Review of system: 14 points review of systems were obtained and were negative except to what were mentioned in the HPI. Past Medical History Past Medical History: COPD Additional Past Medical History / Comment(s): Past hx of back pain, numbness/ tingling left leg and sciatica but none since epidural injections in 2016. History of Any Multi-Drug Resistant Organisms: None Reported Past Surgical History: Back Surgery, Tubal Ligation Additional Past Surgical History / Comment(s): Lumbar laminectomy with revision , colonoscopy with benign polypectomy, L breast benign cystectomy, oral gum surgery, back epidural injections. Past Anesthesia/Blood Transfusion Reactions: Motion Sickness Past Psychological History: No Psychological Hx Reported Additional Psychological History / Comment(s): Pt resides with her spouse. She is independent. Smoking Status: Former smoker Past Alcohol Use History: Occasional Past Drug Use History: None Reported - Past Family History Father Family Medical History: Cancer Additional Family Medical History / Comment(s): Father of BOWEL CANCER at the age of 82yrs. Mother Family Medical History: Cancer Additional Family Medical History / Comment(s): Mother of PANCREATIC CANCER at the age of 60yrs. Medications and Allergies Home Medications Medication Instructions Recorded Confirmed Type Multivitamins, Thera [Multivitamin 1 tab PO DAILY 04/30/17 04/30/17 History (formulary)] Allergies Allergy/AdvReac Type Severity Reaction Status Date / Time No Known Allergies Allergy Verified 04/30/17 12:26 Physical Exam Vitals: Vital Signs Temp Pulse Pulse Resp BP BP Pulse Ox 05/01/17 11:30 74 05/01/17 11:06 98.8 F 74 16 101/61 97 05/01/17 07:46 98.9 F 72 14 111/59 99 05/01/17 04:00 97.4 F L 64 18 106/67 98 05/01/17 00:00 97.2 F L 65 18 107/48 97 04/30/17 20:19 96.9 F L 74 18 141/88 97 04/30/17 20:10 96.9 F L 74 18 141/88 97 04/30/17 20:00 98.7 F 78 20 145/80 98 04/30/17 19:30 98.4 F 80 18 150/80 98 04/30/17 18:53 83 18 132/65 98 04/30/17 18:30 76 20 149/80 98 04/30/17 18:00 77 16 152/78 98 04/30/17 17:30 75 20 142/78 99 04/30/17 17:00 98.7 F 70 20 150/81 98 04/30/17 16:30 70 16 144/70 99 04/30/17 16:00 77 18 150/79 98 04/30/17 15:30 75 20 160/79 99 04/30/17 15:00 80 20 155/81 98 04/30/17 14:30 76 18 148/78 99 04/30/17 14:00 72 20 150/80 98 04/30/17 13:51 70 18 141/63 99 04/30/17 13:35 94 20 149/78 98 04/30/17 13:20 85 16 155/77 98 04/30/17 13:05 81 16 144/85 98 Intake and Output 04/30/17 05/01/17 05/01/17 22:59 06:59 14:59 Intake Total 120 Balance 120 Intake: Oral 120 Other: # Voids 1 Weight 64.6 kg 64.6 kg General: The patient is awake and alert, in no distress Eye: there is normal conjunctiva bilaterally. Neck: The neck is supple, there is no JVD. Cardiovascular: Normal S1-S2, no S3-S4, no murmurs. Respiratory: Lungs clear to auscultation bilaterally Gastrointestinal: Abdomen is soft, nontender Musculoskeletal: There is no pedal edema. Neurological:. Speech is normal. Skin: Skin is warm and dry Results CBC & Chem 7: 04/30/17 11:25 04/30/17 11:25 Labs: Abnormal Lab Results - Last 24 Hours (Table) 05/01/17 Range/Units 05:51 Cholesterol 228 H (<200) mg/dL LDL Cholesterol, Calc 150 H (0-99) mg/dL HDL Cholesterol 70 H (40-60) mg/dL Thrombosis Risk Factor Assmnt - Choose All That Apply Each Factor Represents 1 point: Abnormal pulmonary function (COPD), Age 41-60 years Thrombosis Risk Factor Assessment Total Risk Factor Score: 2 Thrombosis Risk Factor Assessment Level: Low Risk Assessment and Plan Assessment: This is a 56-year-old female with no significant past medical history who presented to the emergency room with a chief complaint of right-sided arm weakness and numbness. Patient said that her symptoms started yesterday and resolved prior to her arrival to the emergency room. Patient denies any neck pain. She never had similar symptoms in the past. She denies any headache or vision change. Patient was evaluated in the emergency room and computed tomography scan of the brain was essentially normal. Patient was admitted to telemetry floor and was treated as a possible TIA. She was started on aspirin. She was seen and evaluated by neurology. She underwent a carotid Doppler showing no hemodynamically significant stenosis. Echocardiogram of the heart was essentially normal. Cholesterol level was noted to be elevated and patient will be started on Lipitor 20 mg daily. She will also be started on aspirin 81 mg daily. She was cleared by neurology for discharge. She will follow-up with her primary care physician as directed.
--- NOTE | 2017-05-01 13:02 | P.CONS ---
History of Present Illness - Reason for Consult Consult date: 05/01/17 TIA - Chief Complaint Right arm and face numbness - History of Present Illness This is a pleasant 56-year-old female being evaluated by the neurology service for an episode of transient cerebral ischemia. Sometime yesterday she was sitting with her watching TV and started to feel numbness and tingling in her right upper extremity. Within 10 minutes she felt that numbness and tingling in the right side of her face. By the time they came to the [facility] emergency room her symptoms had subsided. She denies recent illness, headache, trauma. She is a former smoker. A CT of the brain was done in the emergency room and showed no acute intracranial process. A carotid Doppler was done and showed no hemodynamically significant stenosis. Lipid panel showed a triglyceride of 41 total cholesterol of 228 LDL of 1:15 and HDL of 70. She has been started on 325 mg aspirin and Lipitor 80 mg daily. At the time of my exam she is sitting up at her bedside resting comfortably in no acute distress. Her symptoms have completely resolved. Review of Systems Constitutional: Reports as per HPI Past Medical History Past Medical History: COPD Additional Past Medical History / Comment(s): Past hx of back pain, numbness/ tingling left leg and sciatica but none since epidural injections in 2016. History of Any Multi-Drug Resistant Organisms: None Reported Past Surgical History: Back Surgery, Tubal Ligation Additional Past Surgical History / Comment(s): Lumbar laminectomy with revision , colonoscopy with benign polypectomy, L breast benign cystectomy, oral gum surgery, back epidural injections. Past Anesthesia/Blood Transfusion Reactions: Motion Sickness Past Psychological History: No Psychological Hx Reported Additional Psychological History / Comment(s): Pt resides with her spouse. She is independent. Smoking Status: Former smoker Past Alcohol Use History: Occasional Past Drug Use History: None Reported - Past Family History Father Family Medical History: Cancer Additional Family Medical History / Comment(s): Father of BOWEL CANCER at the age of 82yrs. Mother Family Medical History: Cancer Additional Family Medical History / Comment(s): Mother of PANCREATIC CANCER at the age of 60yrs. Medications and Allergies Home Medications Medication Instructions Recorded Confirmed Type Multivitamins, Thera [Multivitamin 1 tab PO DAILY 04/30/17 04/30/17 History (formulary)] Allergies Allergy/AdvReac Type Severity Reaction Status Date / Time No Known Allergies Allergy Verified 04/30/17 12:26 Physical Exam Vitals: Vital Signs Temp Pulse Pulse Resp BP BP Pulse Ox 05/01/17 11:30 74 05/01/17 11:06 98.8 F 74 16 101/61 97 05/01/17 07:46 98.9 F 72 14 111/59 99 05/01/17 04:00 97.4 F L 64 18 106/67 98 05/01/17 00:00 97.2 F L 65 18 107/48 97 04/30/17 20:19 96.9 F L 74 18 141/88 97 04/30/17 20:10 96.9 F L 74 18 141/88 97 04/30/17 20:00 98.7 F 78 20 145/80 98 04/30/17 19:30 98.4 F 80 18 150/80 98 04/30/17 18:53 83 18 132/65 98 04/30/17 18:30 76 20 149/80 98 04/30/17 18:00 77 16 152/78 98 04/30/17 17:30 75 20 142/78 99 04/30/17 17:00 98.7 F 70 20 150/81 98 04/30/17 16:30 70 16 144/70 99 04/30/17 16:00 77 18 150/79 98 04/30/17 15:30 75 20 160/79 99 04/30/17 15:00 80 20 155/81 98 04/30/17 14:30 76 18 148/78 99 04/30/17 14:00 72 20 150/80 98 04/30/17 13:51 70 18 141/63 99 04/30/17 13:35 94 20 149/78 98 04/30/17 13:20 85 16 155/77 98 04/30/17 13:05 81 16 144/85 98 Intake and Output 04/30/17 05/01/17 05/01/17 22:59 06:59 14:59 Intake Total 120 Balance 120 Intake: Oral 120 Other: # Voids 1 Weight 64.6 kg 64.6 kg - Constitutional General appearance: average body habitus, cooperative, no acute distress - EENT Eyes: no abnormal pupil, EOMI, PERRLA, no ptosis ENT: hearing grossly normal - Neck Neck: normal ROM, no rigidity - Respiratory Respiratory: negative: prolonged expiration, prolonged inspiration - Cardiovascular Rhythm: regular - Gastrointestinal General gastrointestinal: no distended, no tenderness - Neurologic Patient is alert awake and oriented 3. Speech-language are normal. There is no facial asymmetry. Strength is full in bilateral upper and lower extremities. There is no sensory deficit. No tremors or seizure-like activities are seen. There is no dysmetria. Cranial nerves II through XII are intact globally. Results CBC & Chem 7: 04/30/17 11:25 04/30/17 11:25 Labs: Abnormal Lab Results - Last 24 Hours (Table) 05/01/17 Range/Units 05:51 Cholesterol 228 H (<200) mg/dL LDL Cholesterol, Calc 150 H (0-99) mg/dL HDL Cholesterol 70 H (40-60) mg/dL Assessment and Plan (1) Hyperlipidemia Current Visit: Yes Status: Chronic Code(s): E78.5 - HYPERLIPIDEMIA, UNSPECIFIED SNOMED Code(s): 50014339 (2) Tobacco use Current Visit: Yes Status: Chronic Code(s): Z72.0 - TOBACCO USE SNOMED Code(s): 821653752 (3) Right arm numbness Current Visit: Yes Status: Resolved Code(s): R20.2 - PARESTHESIA OF SKIN SNOMED Code(s): 676462382 (4) Right facial numbness Current Visit: Yes Status: Resolved Code(s): R20.0 - ANESTHESIA OF SKIN SNOMED Code(s): 123422659 (5) Transient cerebral ischemia Current Visit: Yes Status: Acute Code(s): G45.9 - TRANSIENT CEREBRAL ISCHEMIC ATTACK, UNSPECIFIED SNOMED Code(s): 127502139 Plan: This patient has suffered a transient ischemic attack. Her symptoms have completely resolved. She will remain on daily aspirin and Lipitor 80 mg. She said she has not smoked in quite some time and I have discussed the importance of continued tobacco cessation. She is cleared from a neurological standpoint follow up with her primary care provider. I have performed a history and physical on the above patient. I have reviewed the above note, and agree.
--- NOTE | 2017-05-01 13:04 | P.DS ---
Providers Date of admission: 04/30/17 12:25 Expected date of discharge: 05/01/17 Attending physician: Abisai Quiros Consults: 04/30/17 12:24 Consult Physician Routine Consulting Provider: Tayla Yang Consult Reason/Comments: [email or web address] Do you want consulting provider notified?: Yes Primary care physician: Shu Milton [place] [facility] Course: This is a 56-year-old female with no significant past medical history who presented to the emergency room with a chief complaint of right-sided arm weakness and numbness. Patient said that her symptoms started yesterday and resolved prior to her arrival to the emergency room. Patient denies any neck pain. She never had similar symptoms in the past. She denies any headache or vision change. Patient was evaluated in the emergency room and computed tomography scan of the brain was essentially normal. Patient was admitted to telemetry floor and was treated as a possible TIA. She was started on aspirin. She was seen and evaluated by neurology. She underwent a carotid Doppler showing no hemodynamically significant stenosis. Echocardiogram of the heart was essentially normal. Cholesterol level was noted to be elevated and patient will be started on Lipitor 20 mg daily. She will also be started on aspirin 81 mg daily. She was cleared by neurology for discharge. She will follow-up with her primary care physician as directed. Patient Condition at Discharge: Fair Plan - Discharge Summary New Discharge Prescriptions: New Aspirin EC [Ecotrin Low Dose] 81 mg PO DAILY #30 tablet. Atorvastatin Calcium [Lipitor] 20 mg PO HS #30 tab Continue Multivitamins, Thera [Multivitamin (formulary)] 1 tab PO DAILY Discharge Medication List Multivitamins, Thera [Multivitamin (formulary)] 1 tab PO DAILY 04/30/17 [History ] Aspirin EC [Ecotrin Low Dose] 81 mg PO DAILY #30 tablet. 05/01/17 [Rx] Atorvastatin Calcium [Lipitor] 20 mg PO HS #30 tab 05/01/17 [Rx] Follow up Appointment(s)/Referral(s): Shu Milton MD [Primary Care Provider] - 3 Days Discharge Disposition: HOME SELF-CARE
[2017-05-01] MEDS ORDERED: HEPARIN SODIUM,PORCINE 5,000 UNIT/ML 1 ML VIAL SQ SCH (21:00)
--- NOTE | 2017-05-11 16:48 | CDI ---
Outpatient Documentation Clarification Form Date: 05-11-17 CDS/Acoustical Engineer Name: BUCK NGUYEN Phone: If any questions, call Maria Victoria Salguero T[employer] Rules Printing Machine Operator at [phone] Patient Name: THOMAS TORRES Admit Date: 04-30-17 Discharge Date: 05-01-17 ATTENTION: The [facility] Coding Staff appreciate your assistance in clarifying documentation. Please respond to the clarification below the line at the bottom and electronically sign. The [facility] Coding staff will review the response and follow-up if needed. Please note: Queries are made part of the Legal Health Record. If you have any questions, please contact the Tape Rules Printing Machine Operator. Dear Dr. LEOS, A. Consult indicates the patient had a Transient Ischemic Attack. Discharge Summary indicates the patient had a possible TIA. Please clarify/specify below the line if the patient had a "TIA" or "possible TIA". B. Consult indicates elevated cholesterol and hyperlipidemia. Pt will be started on Lipitor. Please specify below the line if patient has secondary diagnoses of 1. "hypercholesterolemia" 2. "hyperlipidemia" 3. "hypercholesterolemia and hyperlipidemia" C. Due to some inconsistent documentation please clarify if patient is a "current smoker" or "former smoker" below the line. Thank you for your time. MTDD
--- NOTE | 2017-05-20 14:32 | CDI ---
Outpatient Documentation Clarification Form Date: 05-11-17 CDS/Grinding Machine Operator Portable Name: BUCK NGUYEN Phone: If any questions, call Maria Victoria Salguero Media Sales Consultant at [phone] Patient Name: THOMAS TORRES Admit Date: 04-30-17 Discharge Date: 05-01-17 ATTENTION: The [facility] Coding Staff appreciate your assistance in clarifying documentation. Please respond to the clarification below the line at the bottom and electronically sign. The [facility] Coding staff will review the response and follow-up if needed. Please note: Queries are made part of the Legal Health Record. If you have any questions, please contact the Media Sales Consultant. Dear Dr. LEOS, A. Consult indicates the patient had a Transient Ischemic Attack. Discharge Summary indicates the patient had a possible TIA. Please clarify/specify below the line if the patient had a "TIA" or "possible TIA". B. Consult indicates elevated cholesterol and hyperlipidemia. Pt will be started on Lipitor. Please specify below the line if patient has secondary diagnoses of 1. "hypercholesterolemia" 2. "hyperlipidemia" 3. "hypercholesterolemia and hyperlipidemia" C. Due to some inconsistent documentation please clarify if patient is a "current smoker" or "former smoker" below the line. Thank you for your time. MTDD
--- NOTE | 2017-05-27 17:01 | CDI ---
Outpatient Documentation Clarification Form Date: 05-27-17 CDS/Crusher Setter Name: BUCK NGUYEN Phone: If any questions, call Maria Victoria Salguero Ole[employer] Hasher And Renderer at [phone] Patient Name: THOMAS TORRES Admit Date: 04-30-17 Discharge Date: 05-01-17 ATTENTION: The [facility] Coding Staff appreciate your assistance in clarifying documentation. Please respond to the clarification below the line at the bottom and electronically sign. The [facility] Coding staff will review the response and follow-up if needed. Please note: Queries are made part of the Legal Health Record. If you have any questions, please contact the [employer] Hasher And Renderer. Dear Dr. LEOS, A. Consult indicates the patient had a Transient Ischemic Attack. Discharge Summary indicates the patient had a possible TIA. Please clarify/specify below the line if the patient had a "TIA" or "possible TIA". B. Consult indicates elevated cholesterol and hyperlipidemia. Pt will be started on Lipitor. Please specify below the line if patient has secondary diagnoses of 1. "hypercholesterolemia" 2. "hyperlipidemia" 3. "hypercholesterolemia and hyperlipidemia" C. Due to some inconsistent documentation please clarify if patient is a "current smoker" or "former smoker" below the line. Thank you for your time. MTDD
== END 2017-05-01 14:39 | disposition home or self-care (01) ==
LOC: EC 11:11 → 6SEL 12:25
PROVIDERS: ADMIT Internal Medicine; ATTEND Internal Medicine
DX: R53.1 Weakness (principal); R20.2 Paresthesia of skin; E78.5 Hyperlipidemia, unspecified; Z80.0 Family history of malignant neoplasm of digestive organs; J44.9 Chronic obstructive pulmonary disease, unspecified
CPT/HCPCS: 96361 ×10; 96360 ×2; 99285; 36415; 93005; 93306; 80061; 80053; 82550; 82553; 84484; 85025; 85610; 85730; 71046; 93880; 70450; G0378 ×2

== ENCOUNTER → 2018-02-22 | Outpatient (CLI) | payer MEDICAID, OTHER ==
--- NOTE | 2018-02-22 12:07 | BD ---
EXAMINATION TYPE: Axial Bone Density DATE OF EXAM: 02/22/2018 CLINICAL HISTORY: Height: 66 inches Weight: 141 FRAX RISK QUESTIONS: Alcohol (3 or more units per day): no Family History (Parent hip fracture): no Glucocorticoids (More than 3mos): no (Ex: prednisone, prednisolone, methylprednisolone, dexamethasone, and hydrocortisone). History of Fracture in Adulthood: no Secondary Osteoporosis: 1. Type 1 Diabetes: no 2. Hyperthyroidism: no 3. Menopause before 45: no 4. Malnutrition: no 5. Chronic liver disease: no Rheumatoid Arthritis: unsure what type of arthritis Current Tobacco Use: no RISK FACTORS HISTORY OF: Spine Fracture: no Surgery to Spine: yes When: several for herniated discs, levels L4,L5 states patient Family History of Osteoporosis: no Active: yes Diet low in dairy products/other sources of calcium: no Postmenopausal woman: yes Take estrogen and/or progesterone medications: no Lost more than 2 inches in height since high school: no Frequent falls: no Poor Health: no Hyperparathyroidism: no Adrenal Insufficiency: no MEDICATIONS: Prednisone or other steroids: no Thyroid Medications: no Osteoporosis Medications: no Additional Medications: Lipitor, baby aspirin Additional History: EXAM MEASUREMENTS: Bone mineral densitometry was performed using the [employer] System. Bone mineral density as measured about the Lumbar spine is: ----- L1-L4(G/cm2): 1.132 T Score Values are as follows: ----- L2: -1.2 ----- L3: -0.4 ----- L4: 0.0 ----- L1-L4: -0.4 Bone mineral density not previously done at this facility Bone mineral density about the R hip (g/cm2): 1.227 Bone mineral density about the L hip (g/cm2): 1.224 T Score values are as follows: -----R Neck: 1.4 -----L Neck: 1.3 -----R Total: 1.5 -----L Total: 1.4 Bone mineral density not previously done at this facility IMPRESSION: Normal (Values between +1 and -1 indicate normal bone mass). Consider repeating this study in 5 year s or sooner if there is some new clinical indication. NOTE: T-SCORE=SD OF THE YOUNG ADULT MEAN.
--- NOTE | 2018-02-23 08:42 | MM ---
Reason for exam: screening (asymptomatic). Last mammogram was performed 4 years and 10 months ago. History: Patient is postmenopausal. Benign cyst aspiration of the left breast, 1998. Physical Findings: A clinical breast exam by your physician is recommended on an annual basis and results should be correlated with mammographic findings. MG Screening Mammo w CAD Bilateral CC and MLO view(s) were taken. Prior study comparison: April 20, 2013, right diagnostic mammogram w/CAD. October 17, 2012, [facility] DIGITAL RIGHT MAMMOGRAM w/CAD. The breast tissue is heterogeneously dense. This may lower the sensitivity of mammography. There are benign appearing round dystrophic calcifications bilaterally. There is no discrete abnormality. ASSESSMENT: Benign, BI-RAD 2 RECOMMENDATION: Routine screening mammogram of both breasts in 1 year.
== END | disposition home or self-care (01) ==
LOC: RADMAMWWP 07:16
PROVIDERS: ATTEND Family Medicine
DX: Z12.31 Encounter for screening mammogram for malignant neoplasm of breast (principal); Z13.820 Encounter for screening for osteoporosis
CPT/HCPCS: 77067; 77080

== ENCOUNTER 2020-08-20 06:33 | Day surgery (SDC) | payer MEDICAID, OTHER ==
[2020-08-19 09:45] VITALS: BMI 22.6
[2020-08-20] MEDS ORDERED: LACTATED RINGERS 1,000 ML IV ONE (07:10)
[2020-08-20 07:11] VITALS: TEMP 98.6
[2020-08-20] MEDS ORDERED: fentaNYL (PF) 50 MCG/ML 2 ML AMP ONE (07:28)
[2020-08-20] MEDS ORDERED: PROPOFOL 10 MG/ML 20 ML VIAL IV ONE (07:28)
[2020-08-20] MEDS ORDERED: MIDAZOLAM 2 MG/2 ML VIAL ONE (07:28)
--- NOTE | 2020-08-20 07:51 | P.PCN ---
Date of Procedure: 08/20/20 Procedure(s) Performed: BRIEF HISTORY: Patient is a 60-year-old pleasant white female scheduled for an elective colonoscopy as a part of screening for colorectal neoplasia. She does have family history of colon cancer in her father at age 70. PROCEDURE PERFORMED: Colonoscopy with snare polypectomy. PREOPERATIVE DIAGNOSIS: Screening for colon cancer/family history of colon cancer. IV sedation per Anesthesia. PROCEDURE: After informed consent was obtained, the patient, was brought into the endoscopy unit. IV sedation was administered by Anesthesia under continuous monitoring. Digital rectal examination was normal. Initially the Olympus CF-160 flexible video colonoscope was then inserted in the rectum, gradually advanced into the cecum without any difficulty. Careful examination was performed as the scope was gradually being withdrawn. Ileocecal valve and the appendiceal orifice were visualized and appeared normal. Prep was excellent. Mucosa of the cecum, appeared normal. In the ascending colon there was a 7 mm flat polyp removed by snare polypectomy. Rest of the ascending colon, transverse colon, descending colon, sigmoid colon, and rectum appeared normal. In the proximal rectum there was a 3 mm sessile polyp removed by snare polypectomy. Retroflexion was performed in the rectum and no lesions were seen. The patient tolerated the procedure well. IMPRESSION: 7 mm flat ascending colon polyp status post polypectomy 3 mm proximal rectal polyp status post polypectomy RECOMMENDATIONS: Findings of this examination were discussed with the patient as well as his family. She was advised to follow with the biopsy. She was advised to have a repeat colonoscopy in 5 years because of the family history of colon cancer..
[2020-08-20 08:11] VITALS: BP 120/70; PULSE 68; RESP 18
== END 2020-08-20 08:56 | disposition home or self-care (01) ==
LOC: ORWHC2ENDO 06:33
PROVIDERS: ATTEND Internal Medicine Gastroenterology
DX: Z12.11 Encounter for screening for malignant neoplasm of colon (principal); D12.2 Benign neoplasm of ascending colon; K62.1 Rectal polyp; Z87.891 Personal history of nicotine dependence; Z80.0 Family history of malignant neoplasm of digestive organs; Z97.2 Presence of dental prosthetic device (complete) (partial); Z79.82 Long term (current) use of aspirin; Z79.899 Other long term (current) drug therapy
CPT/HCPCS: 88305; 45385; J2250; J3010; J2704

== ENCOUNTER → 2020-11-26 | Outpatient (CLI) | payer MEDICAID, OTHER ==
--- NOTE | 2020-11-26 14:16 | MM ---
Reason for exam: screening (asymptomatic). Last mammogram was performed 2 years and 9 months ago. History: Patient is postmenopausal. Benign cyst aspiration of the left breast, 1998. Physical Findings: A clinical breast exam by your physician is recommended on an annual basis and results should be correlated with mammographic findings. MG 3D Screening Mammo W/Cad Bilateral CC and MLO view(s) were taken. XCCL view(s) were taken of the right breast. Prior study comparison: February 22, 2018, bilateral MG screening mammo w CAD. The breast tissue is heterogeneously dense. This may lower the sensitivity of mammography. Finding: There are typically benign round, regional calcifications in the anterior position of the left breast. There is no discrete abnormality. ASSESSMENT: Benign, BI-RAD 2 RECOMMENDATION: Routine screening mammogram of both breasts in 1 year.
== END | disposition home or self-care (01) ==
LOC: RADMAMWWP 08:12
PROVIDERS: ATTEND Family Medicine
DX: Z12.31 Encounter for screening mammogram for malignant neoplasm of breast (principal); Z78.0 Asymptomatic menopausal state
CPT/HCPCS: 77063; 77067

== ENCOUNTER → 2021-01-21 | Outpatient (CLI) | payer MEDICAID, OTHER ==
--- NOTE | 2021-01-21 17:04 | BD ---
EXAMINATION TYPE: Axial Bone Density DATE OF EXAM: 01/21/2021 COMPARISON: 2018 CLINICAL HISTORY: Postmenopausal screening Height: 66.5 Weight: 158.3 FRAX RISK QUESTIONS: Alcohol (3 or more units per day): no Family History (Parent hip fracture): no Glucocorticoids (More than 3mos): no (Ex: prednisone, prednisolone, methylprednisolone, dexamethasone, and hydrocortisone). History of Fracture in Adulthood: no Secondary Osteoporosis: 1. Type 1 Diabetes: no 2. Hyperthyroidism: no 3. Menopause before 45: no 4. Malnutrition: no 5. Chronic liver disease: no Rheumatoid Arthritis: no Current Tobacco Use: no RISK FACTORS HISTORY OF: Surgery to Spine/Hip(right/left)/Wrist (right/left): yes -disc When: 8-10 years ago Family History of Osteoporosis: no Active: yes Diet low in dairy products/other sources of calcium: yes Postmenopausal woman: yes Lost more than 2 inches in height since high school: no MEDICATIONS: Additional History: EXAM MEASUREMENTS: Bone mineral densitometry was performed using the [employer]. Bone mineral density as measured about the Lumbar spine is: ----- L1-L4(G/cm2): 1.176 T Score Values are as follows: ----- L2: -0.6 ----- L3: 0.2 ----- L4: 0.0 ----- L1-L4: 0.0 Bone mineral density has: increased 3.8 % since study of: 02.22.2018 Bone mineral density about the R hip (g/cm2): 1.246 Bone mineral density about the L hip (g/cm2): 1.249 T Score values are as follows: -----R Neck: 1.5 -----L Neck: 1.5 -----R Total: 1.7 -----L Total: 1.6 Bone mineral density has: increased 1.3 % since study of: 02.22.2018 IMPRESSION: Normal (Values between +1 and -1 indicate normal bone mass). Consider repeating this study in 5 year s or sooner if there is some new clinical indication. NOTE: T-SCORE=SD OF THE YOUNG ADULT MEAN.
== END | disposition home or self-care (01) ==
LOC: RADBDWWP 07:43
PROVIDERS: ATTEND Family Medicine
DX: Z13.820 Encounter for screening for osteoporosis (principal); Z78.0 Asymptomatic menopausal state
CPT/HCPCS: 77080

== ENCOUNTER → 2023-03-15 | Outpatient (CLI) | payer OTHER ==
--- NOTE | 2023-03-15 16:54 | MM ---
Reason for Exam: Screening (asymptomatic). Last mammogram was performed 2 year(s) and 4 month(s) ago. Patient History: Menarche at age 15. First Full-Term at age 19. Postmenopausal. 1998, Benign Cyst Aspiration on the left side. Risk Values: Sujatha 5 year model risk: 1.3%. NCI Lifetime model risk: 5.5%. Prior Study Comparison: 04/20/2013 Right Diagnostic Mammogram, [facility]. 02/22/2018 Bilateral Screening Mammogram, [facility]. 11/26/2020 Bilateral Screening Mammogram, [facility]. Tissue Density: The breast tissue is heterogeneously dense. This may lower the sensitivity of mammography. Findings: Analyzed By CAD. Pattern appears symmetrical and stable. No significant interval change is evident. Scattered benign round calcifications are present bilaterally. No suspicious groups of microcalcifications, spiculated or lobular masses, architectural distortion or other secondary signs of malignancy are mammographically apparent. Overall Assessment: Benign, BI-RAD 2 Management: Screening Mammogram of both breasts in 1 year. A negative mammogram report should not preclude additional follow up of suspicious palpable abnormalities. Patient should continue monthly self breast exam. A clinical breast exam by your physician is recommended on an annual basis and results should be correlated with mammographic findings. Electronically signed and approved by: Yung Aguayo D.O. Radiologis
== END | disposition home or self-care (01) ==
LOC: RADMAMWWP 07:53
PROVIDERS: ATTEND Family Medicine
DX: Z12.31 Encounter for screening mammogram for malignant neoplasm of breast (principal); Z78.0 Asymptomatic menopausal state
CPT/HCPCS: 77067

== ENCOUNTER 2024-02-17 05:38 | Day surgery (SDC) | payer OTHER ==
[2024-02-14 10:27] VITALS: BMI 25.4
[2024-02-17 06:40] VITALS: TEMP 97.9
[2024-02-17] MEDS: IV FLUID CONTINUATION 1,000 ML IV ONE (06:46)
[2024-02-17] MEDS: LACTATED RINGERS 1,000 ML IV SCH (06:50)
[2024-02-17] MEDS ORDERED: LIDOCAINE 1% INJ 10MG/ML (20 ML MDV) ONE (07:15)
[2024-02-17] MEDS ORDERED: PROPOFOL 10 MG/ML 20 ML VIAL IV ONE (07:15)
--- NOTE | 2024-02-17 07:38 | P.PCN ---
Date of Procedure: 02/17/24 Procedure(s) Performed: Brief history: Patient is a pleasant 63-year-old pleasant white female scheduled for an elective upper endoscopy as well as colonoscopy as a part of evaluation of GERD and history of colon polyps. Last colonoscopy was 3 years ago and was noted to have an adenoma. Procedure performed: Esophagogastroduodenoscopy biopsy Colonoscopy Preoperative diagnosis: GERD History of colon polyps Anesthesia: MAC Procedure: After informed consent was obtained from the patient was brought into the endoscopy unit and IV sedation was administered by anesthesia under continuous monitoring. Initially upper endoscopy was done. The Olympus GF 160 video endoscope was inserted inserted into the mouth and esophagus intubated without any difficulty and was gradually advanced into the stomach and duodenum and carefully examined. The bulb and second part of the duodenum appeared normal. The scope was then withdrawn into the stomach adequately insufflated with air and upon careful examination the antrum had gastritis and biopsies were done from this area. Mucosa body, cardia and fundus appeared normal. Mild gastric polyps noted in the gastric body which were biopsied. The scope was then withdrawn into the esophagus. Sliding-type hiatal hernia noted. The GE junction was located at 40 cm to the incisors. It appeared regular with no erythema erosions or ulcerations. Rest of the esophagus appeared normal. Patient tolerated the procedure well. At this time the patient continued to remain sedation. Initial digital rectal examination was normal. Olympus CF 160 video colonoscope was then inserted into the rectum and gradually advanced to the cecum without any difficulty. Careful examination was performed as the scope was gradually being withdrawn. The prep was excellent. The cecum, ascending colon, transverse colon, descending colon, sigmoid colon and rectum appeared normal. Retroflexion was performed in the rectum and no lesions were noted. Patient tolerated the procedure well. Impression: 1. Upper endoscopy revealed mild antral gastritis, multiple small gastric polyps and small hiatal hernia 2. Colonoscopy was within normal limits with no evidence of colorectal neoplasia Recommendations: Findings of this examination were discussed with the patient as well as her family. She was advised to follow-up with the biopsy results. Continue with Protonix 40 mg daily and follow antireflux measures. Recommended repeat screening colonoscopy in 10 years.
[2024-02-17 07:45] VITALS: RESP 16
[2024-02-17 08:00] VITALS: BP 130/73; PULSE 78
== END 2024-02-17 08:41 | disposition home or self-care (01) ==
LOC: ORWHC2ENDO 05:38
PROVIDERS: ATTEND Internal Medicine Gastroenterology
DX: Z12.11 Encounter for screening for malignant neoplasm of colon (principal); K29.50 Unspecified chronic gastritis without bleeding; K31.7 Polyp of stomach and duodenum; K44.9 Diaphragmatic hernia without obstruction or gangrene; K21.9 Gastro-esophageal reflux disease without esophagitis; E78.5 Hyperlipidemia, unspecified; J44.9 Chronic obstructive pulmonary disease, unspecified; Z80.0 Family history of malignant neoplasm of digestive organs; Z86.0101 Personal history of adenomatous and serrated colon polyps; Z87.891 Personal history of nicotine dependence; Z79.899 Other long term (current) drug therapy; Z98.890 Other specified postprocedural states
CPT/HCPCS: 88305; 88342; 45378; 43239; J2003; J2704

== ENCOUNTER 2024-08-21 09:33 | Day surgery (SDC) | payer MEDICARE, OTHER ==
[2024-08-20 12:28] VITALS: BMI 25.8
[~2024-08-21 09:33] MED LIST: LACTATED RINGERS 1,000 ML IV SCH
[2024-08-21] MEDS: IV FLUID CONTINUATION 1,000 ML IV ONE (10:09)
[2024-08-21 10:30] VITALS: TEMP 97.6
[2024-08-21] MEDS ORDERED: PROPOFOL 10 MG/ML 20 ML VIAL IV ONE (11:05)
[2024-08-21] MEDS ORDERED: LIDOCAINE 2% (PF) 20 MG/ML 5 ML VIAL ONE (11:05)
--- NOTE | 2024-08-21 11:18 | P.PCN ---
Date of Procedure: 08/21/24 Procedure(s) Performed: BRIEF HISTORY: Patient is a 64-year-old, pleasant, white female scheduled up anoscopy as a part of follow-up of gastric polyps noted on recent upper endoscopy in February 2024. She had an upper endoscopy done for evaluation of GERD. Was noted to have small gastric polyps and biopsies revealed adenoma with low-grade dysplasia. She has not scheduled a follow-up upper endoscopy today.. PROCEDURE PERFORMED: Esophagogastroduodenoscopy with biopsy. PREOPERATIVE DIAGNOSIS: Follow-up gastric polyps/adenoma. IV sedation per anesthesia. PROCEDURE: After informed consent was obtained, the patient was brought into the endoscopy unit. IV sedation was administered by Anesthesia under continuous monitoring. Initially the Olympus GIF-140 video endoscope was inserted into the mouth. Esophagus intubated without any difficulty. It was gradually advanced into the stomach and duodenum and carefully examined. The bulb and the second part of the duodenum appeared normal. The scope at this time was withdrawn to the stomach, adequately insufflated with air, and upon careful examination, mucosa of the antrum appeared normal. In the gastric body. Small gastric polyps noted less than 10 in number which measured between 3 to 4 mm in size which were biopsied. Rest of the, body, cardia and the fundus appeared normal. The scope was then withdrawn into the esophagus. Small hiatal hernia noted. The GE junction was located at 39 cm from the incisors. The esophagus appeared normal. There were no erosions or ulcerations seen and the patient tolerated the procedure well. IMPRESSION: 1. Small gastric polyps measuring between 3 to 4 mm in size in the gastric body status post multiple biopsies. 2. Small hiatal hernia. RECOMMENDATIONS: The findings of this examination were discussed with the patient as well as of her biopsy. She was advised to follow-up with the biopsy results. Continue with omeprazole 40 mg daily and follow antireflux measures..
[2024-08-21 11:37] VITALS: BP 121/89; PULSE 79; RESP 16
== END 2024-08-21 11:54 | disposition home or self-care (01) ==
LOC: ORWHC2ENDO 09:33
PROVIDERS: ATTEND Internal Medicine Gastroenterology
DX: K31.7 Polyp of stomach and duodenum (principal); K44.9 Diaphragmatic hernia without obstruction or gangrene; K21.9 Gastro-esophageal reflux disease without esophagitis
CPT/HCPCS: 43239; J2704; J2003; 88305